=== PATIENT | female | born 1935 | race Caucasian/White ===

== ENCOUNTER 2016-08-25 15:55 | Inpatient (IN) | payer OTHER ==
--- NOTE | 2016-08-25 16:09 | CPEKG ---
Heart Rate: 118 RR Interval: 508 QRSD Interval: 74 QT Interval: 320 QTC Interval: 449 QRS [place]: 1 T Wave [place]: 65 EKG Severity - ABNORMAL ECG - EKG Impression: ATRIAL FIBRILLATION, V-RATE 80-149 EKG Impression: MULTIFORM VENTRICULAR PREMATURE COMPLEXES EKG Impression: BORDERLINE T ABNORMALITIES, LATERAL LEADS Electronically Signed By: Braeden Cano 25-Aug-2016 16:40:27
[2016-08-25 16:24] LABS: % IMMATURE GRANULYOCYTES 0.2 % (0.0-1.1); ABSOLUTE IMMATURE GRANULOCYTES 0.03 10^3/uL (0.00-0.10); ADD DIFF? NO; ADD MORPH? NO; ADD SCAN? NO; ATYPICAL LYMPHOCYTE FLAG 0 (0-99); FRAGMENT RBC FLAG 0 (0-99); HEMATOCRIT 46.6 % (38.0-47.0); HEMOGLOBIN 15.5 g/dL (12.6-16.3); LEFT SHIFT FLG 0 (0-99); LIPEMIA HEMOLYSIS FLAG 80 (0-99); MEAN CELL HEMOGLOBIN CONCENTR. 33.3 g/dL (32.4-36.7); MEAN CELL VOLUME 90.1 fL (81.5-99.8); MEAN PLATELET VOLUME 11.5 fL (8.7-11.7); PLATELET CLUMPS FLAG 50 (0-99); PLATELET COUNT 233 10^3/uL (150-400); RED BLOOD CELL COUNT 5.17 10^6/uL (4.18-5.33); RED CELL DISTRIBUTION WIDTH 14.3 % (11.5-15.2)
[2016-08-25] MEDS ORDERED: ENOXAPARIN 60 MG/0.6 ML SYR SC ONE (16:24)
--- NOTE | 2016-08-25 16:34 | EDPHY ---
H & P Stated Complaint: sent for afib/synptoms for 1 month Time Seen by Provider: 08/25/16 16:08 HPI/ROS: CHIEF COMPLAINT: Dyspnea, new onset atrial fibrillation HISTORY OF PRESENT ILLNESS: The patient presents to the ED with complaints of dyspnea and new onset atrial fibrillation. The patient has had some increasing pedal edema over the past month. 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 She was noted to be in atrial fibrillation with rapid ventricular response. She was referred to the ED for further evaluation. The patient denies asymmetric calf pain or swelling. Patient has had some generalized weakness over the past month. She does have fairly significant dyspnea with ambulation. She has no prior history of atrial fibrillation. She denies additional complaints. REVIEW OF SYSTEMS: A comprehensive 10 point review of systems is otherwise negative aside from elements mentioned in the history of present illness. Source: Patient Exam Limitations: No limitations - Personal History Current Tetanus/Diphtheria Vaccine: Unsure Tetanus Vaccine Date: unsure - Medical/Surgical History Hx Asthma: No Hx Chronic Respiratory Disease: No Hx Diabetes: Yes Hx Cardiac Disease: Yes Hx Renal Disease: No Hx Cirrhosis: No Hx Alcoholism: No Hx HIV/AIDS: No Hx Splenectomy or Spleen Trauma: No Other PMH: Medical- Pre-diabetic, HTN, hyperlipidemia, peripheral neuropathy, ? dysrhythmia, hypothyroid, CVA/TIA. Surgical- stent,thumb surg x3, tonsillectomy , hysterectomy, - Social History Smoking Status: Never smoked - Physical Exam Exam: General Appearance: Alert, no distress Eyes: Pupils equal and round no pallor or injection ENT, Mouth: Mucous membranes moist Respiratory: There are no retractions, lungs are clear to auscultation Cardiovascular: Irregular rate, 2/6 systolic ejection murmur Gastrointestinal: Abdomen is soft and nontender, no masses, bowel sounds normal Neurological: A&O, normal motor function, normal sensory exam, normal cranial nerves Skin: Warm and dry, no rashes Musculoskeletal: Neck is supple nontender Extremities: 2+ bilateral pitting edema Psychiatric: Patient is oriented X 3, there is no agitation Constitutional: Initial Vital Signs Temperature (C) 36.4 C 08/25/16 15:57 Heart Rate 146 H 08/25/16 15:57 Respiratory Rate 20 08/25/16 15:57 Blood Pressure 159/106 H 08/25/16 15:57 O2 Sat (%) 96 08/25/16 15:57 O2 Delivery Mode Nasal Cannula O2 (L/minute) 3 Allergies/Adverse Reactions: Alpha-Linoleic Acid [From [place] 3-6-9] Allergy (Mild, Verified 08/25/16 15:56) Other-Enter Comments Fatty Acid Combination No.8 [From [place] 3-6-9] Allergy (Mild, Verified 08/25/16 15:56) Other-Enter Comments fish oil [From [place] 3-6-9] Allergy (Mild, Verified 08/25/16 15:56) Other-Enter Comments Gamma Linoleic Acid [From [place] 3-6-9] Allergy (Mild, Verified 08/25/16 15:56) Other-Enter Comments Herbal Complex No. 137 [From [place] 3-6-9] Allergy (Mild, Verified 08/25/16 15:56 ) Other-Enter Comments linoleic acid [From [place] 3-6-9] Allergy (Mild, Verified 08/25/16 15:56) Other-Enter Comments lipase [From [place] 3-6-9] Allergy (Mild, Verified 08/25/16 15:56) Other-Enter Comments oleic acid [From [place] 3-6-9] Allergy (Mild, Verified 08/25/16 15:56) Other-Enter Comments omega-3 fatty acids [From [place] 3-6-9] Allergy (Mild, Verified 08/25/16 15:56) Other-Enter Comments paroxetine HCl [From Paxil] Allergy (Mild, Verified 08/25/16 15:56) vitamin E [From [place] 3-6-9] Allergy (Mild, Verified 08/25/16 15:56) Other-Enter Comments nadolol [From [place]orgard] Allergy (Unknown, Verified 08/25/16 15:56) spironolactone [From Aldactone] Allergy (Unknown, Verified 08/25/16 15:56) labetalol [Labetalol] Allergy (Verified 08/25/16 15:56) Other-Enter Comments Sulfa (Sulfonamide Antibiotics) Allergy (Verified 08/25/16 15:56) Rash Home Medications: Medication Instructions Recorded Multivitamins [Multivitamin (*)] 1 each PO DAILY 02/23/11 Aspirin EC [Aspirin EC 325 mg (*)] 325 mg PO BID 01/16/14 Atorvastatin Calcium [Lipitor 10 10 mg PO DAILY 08/25/16 mg (*)] Cholecalciferol Vit D3 [Vitamin D3 1,000 units PO DAILY 08/25/16 (*)] Cyanocobalamin [Vitamin B12 (*)] 500 mcg PO DAILY 08/25/16 Doxycycline Hyclate [Vibramycin 100 mg PO DAILY@18 08/25/16 100 MG (*)] Gabapentin [Neurontin 400 MG (*)] 400 mg PO QID 08/25/16 Herbals/Supplements -Info Only 1 ea PO DAILY 08/25/16 Levothyroxine [Synthroid 50 mcg 50 mcg PO DAILY06 08/25/16 (*)] Lisinopril [Zestril 40 mg (*)] 40 mg PO DAILY 08/25/16 Metformin HCl [Glucophage 1000 mg] 1,000 mg PO BIDMEAL 08/25/16 Metformin HCl [Glucophage] 500 mg PO DAILY@12 08/25/16 Nebivolol HCl [Bystolic] 10 mg PO HS 08/25/16 Medical Decision Making - Diagnostics EKG Interpretation: EKG: Complete interpretation has been separately recorded in the [employer] archive. Summary impression: Atrial fibrillation with ventricular rate of 120 Imaging: Chest x-ray PA lateral: Images reviewed by myself and radiologist Dr. Drew schwab suggest evidence of mild congestive heart failure. ED Course/Re-evaluation: The patient was referred to the emergency department by Dr. Nikita Kim who has requested the patient be admitted to hospitalist service. She presents to the ED with new onset atrial fibrillation, pedal edema and dyspnea. The patient was initially quite tachycardic however has had some improvement of her tachycardia into the low 100. She is currently not on diltiazem. The patient was observed in the ED. She does have evidence of mild congestive heart failure based upon BNP testing but no significant hypoxemia. The patient will be admitted to the hospital for further evaluation. The patient was given a weight based dose of Lovenox per Dr. Kim is recommendation. Consultation was made with Dr. Eun Izaguirre from the hospitalist service who will admit the patient. Differential Diagnosis: Differential diagnosis considered includes atrial fibrillation, ventricular tachycardia, congestive heart failure myocardial infarction - Data Points Laboratory Results: Laboratory Results 08/25/16 16:15 08/25/16 16:15 08/25/16 16:15 WBC 14.18 H 10^3/uL (3.80-9.50) RBC 5.17 10^6/uL (4.18-5.33) Hgb 15.5 g/dL (12.6-16.3) Hct 46.6 % (38.0-47.0) MCV 90.1 fL (81.5-99.8) MCH 30.0 pg (27.9-34.1) MCHC 33.3 g/dL (32.4-36.7) RDW 14.3 % (11.5-15.2) Plt Count 233 10^3/uL (150-400) MPV 11.5 fL (8.7-11.7) Neut % (Auto) 37.2 L % (39.3-74.2) Lymph % (Auto) 54.8 H % (15.0-45.0) [place] % (Auto) 4.8 % (4.5-13.0) Eos % (Auto) 2.5 % (0.6-7.6) Baso % (Auto) 0.5 % (0.3-1.7) Nucleat RBC Rel Count 0.0 % (0.0-0.2) Absolute Neuts (auto) 5.28 10^3/uL (1.70-6.50) Absolute Lymphs (auto) 7.77 H 10^3/uL (1.00-3.00) Absolute Monos (auto) 0.68 10^3/uL (0.30-0.80) Absolute Eos (auto) 0.35 10^3/uL (0.03-0.40) Absolute Basos (auto) 0.07 10^3/uL (0.02-0.10) Absolute Nucleated RBC 0.00 10^3/uL (0-0.01) Immature Gran % 0.2 % (0.0-1.1) Immature Gran # 0.03 10^3/uL (0.00-0.10) Sodium 139 mEq/L (134-144) Potassium 2.9 L mEq/L (3.5-5.2) Chloride 111 H mEq/L (97-110) Carbon Dioxide 22 mEq/l (22-31) Anion Gap 6 mEq/L (8-16) BUN 12 mg/dL (7-23) Creatinine 0.6 mg/dL (0.6-1.0) Estimated GFR > 60 Glucose 142 H mg/dL (70-100) Calcium 6.9 L mg/dL (8.5-10.4) Troponin I < 0.012 ng/mL (0-0.034) NT-Pro-B Natriuret Pep 2640 H pg/mL (0-450) Medications Given: Discontinued Medications Enoxaparin Sodium (Lovenox) 60 mg SC EDNOW ONE Stop: 08/25/16 16:25 Last Admin: 08/25/16 16:52 Dose: 60 mg Departure - Departure Disposition: [facility] Acute Clinical Impression: Rapid atrial fibrillation, Peripheral edema Congestive heart failure Qualifiers: Congestive heart failure type: unspecified congestive heart failure type Congestive heart failure chronicity: acute Qualifier Code: (I50.9) Heart failure , unspecified Condition: Good
[2016-08-25 16:44] LABS: ANION GAP 6 mEq/L (8-16); CALCIUM 6.9 mg/dL (8.5-10.4); CARBON DIOXIDE 22 mEq/l (22-31); CHLORIDE 111 mEq/L (97-110); CREATININE 0.6 mg/dL (0.6-1.0); GLOMERULAR FILTRATION RATE > 60; GLUCOSE 142 mg/dL (70-100); POTASSIUM 2.9 mEq/L (3.5-5.2); SODIUM 139 mEq/L (134-144)
[2016-08-25 16:55] LABS: TROPONIN I < 0.012 ng/mL (0-0.034)
--- NOTE | 2016-08-25 17:36 | DX ---
PA and Lateral Chest Indication: Chest pain. Dyspnea. New onset atrial fibrillation. Comparison: None Findings: The mildly hyperinflated lungs have diffuse mild peribronchial and interstitial pattern. Sm all bilateral pleural effusions blunt costophrenic angles and results in minimal bibasilar compressiv e atelectasis. Heart size minimally enlarged. Minimal cephalization. Demineralization. Impression: Minimal CHF and bilateral pleural effusions. Comment: The results were discussed with Dr. Braeden Cano.
[2016-08-25] MEDS ORDERED: PROTOCOL POTASSIUM 1 DOSE MISC PRN (19:58)
[2016-08-25] MEDS ORDERED: POTASSIUM CL 10 MEQ TAB PO ONE (20:22)
[2016-08-25] MEDS ORDERED: D50W 25 GM/50 ML SYR IVP PRN (20:23)
[2016-08-25] MEDS ORDERED: DILTIAZEM 125 MG in D5W 125 ML IV SCH (20:30)
--- NOTE | 2016-08-25 21:02 | US ---
Bilateral Lower Extremity Ultrasound and Venous Duplex Doppler Study History: Swelling. Comparison: None available. Technique: High frequency transducer was used for imaging and Doppler study of the veins of the righ t and left lower extremities. Pulsed Doppler and color Doppler were utilized, along with various ma neuvers to assess flow in the veins. Findings: Calf edema is noted bilaterally. Right: The deep veins of the right lower extremity are normally compressible between the groin and th e upper calf. They have normal Doppler waveforms within them. No venous thrombosis is identified. Left: The deep veins of the left lower extremity are normally compressible between the groin and the upper calf. They have normal Doppler waveforms within them. No venous thrombus is identified. Impression: No evidence of deep vein thrombosis in the lower extremities.
--- NOTE | 2016-08-25 21:04 | GHP ---
[f rep st] HISTORY AND PHYSICAL DATE OF ADMISSION: 08/25/2016 CHIEF COMPLAINT: Edema and palpitations. HISTORY: The patient is an 81-year-old female who was seen in the cardiology office today for routin e followup, and she was found to be in new-onset AFib. She has been struggling with leg edema recent ly, as well as shortness of breath with only minimal exertion. Her Bystolic was increased in r, and it was shortly after this that she developed the worsening edema and shortness of breath, so s he thought the Bystolic was the cause. The Bystolic has since been reduced back to her previous dose , and she continues to have shortness of breath and edema. She occasionally will feel palpitations. Her leg edema goes all the way up to her thighs. She has had a 10-pound weight gain. She denies an y chest pain. PAST MEDICAL HISTORY: 1. Coronary artery disease, status post stent. 2. Diabetes type 2. 3. TIA. 4. Hyperlipidemia. 5. CLL. MEDICATIONS: Please see the computer record for the full detailed list. ALLERGIES: To sulfa, nadolol, labetalol, and spironolactone. SOCIAL HISTORY: No smoking. No alcohol. She lives with her daughter. REVIEW OF SYSTEMS: A complete review of systems was obtained. The review of systems is negative on constitutional, HEENT, GI, pulmonary, cardiovascular, , hematology, skin, musculoskeletal, endocrin e, and psych except for the positives and negatives as noted in the HPI. FAMILY HISTORY: Reviewed and noncontributory to presenting complaint. PHYSICAL EXAMINATION: GENERAL: Well-developed, well-nourished female in no acute distress. VITAL S IGNS: Temperature 36.4, pulse 112, blood pressure 191/122, satting 96% on room air. EYE EXAMINATION : Normal conjunctivae. Pupils equal and reactive to light. ENT: Normal ears and nose. Hearing in tact. Normal lips and teeth. Oropharynx moist. NECK: Trachea midline. No thyromegaly. CHEST: N ormal respiratory effort. LUNGS: Clear to auscultation bilaterally. CARDIOVASCULAR SYSTEM: Irregu larly irregular, with murmur. 3+ lower extremity edema. ABDOMEN: Soft, nontender. No hepatospleno megaly. SKIN: Warm, dry, and intact, without rash. MUSCULOSKELETAL: No cyanosis or clubbing. Str ength 5/5 in the upper and lower extremities. NEUROLOGIC: Cranial nerves intact. Normal sensation to light touch. PSYCH ASSESSMENT: Alert and oriented x3. Normal mood and affect. Normal judgment and insight. Normal memory. LABORATORY DATA: White count 14.18, hematocrit 46.6, platelets 233. Sodium 139, potassium 2.9, chlo ride 111, bicarb 22, BUN 12, creatinine 0.6, glucose 142. Troponins negative. BNP is 2640. EKG was viewed by me. My personal interpretation is atrial fibrillation with rapid ventricular response. N o ST or T-wave changes. Chest x-ray shows mild CHF. ASSESSMENT AND PLAN: 1. New-onset atrial fibrillation with rapid ventricular response. She is quite hypertensive this ev ening. We will start her on an IV diltiazem drip. We will anticoagulate with subcu Lovenox. We kena l check an echo in the morning. Cardiology is aware of the admission. 2. Congestive heart failure exacerbation. We will initiate IV Lasix. 3. Hypokalemia. It is unclear to me why she is so hypokalemic, as she is not on a diuretic at home. The potassium will be repleted prior to initiating diuresis. 4. Coronary artery disease, status post previous stent. She is appropriately on an aspirin, statin, beta helena, and GISELE inhibitor. 5. Diabetes type 2. She is on metformin. 6. CLL. She has a stable mild leukocytosis and has not required any treatment for CLL. 7. DVT prophylaxis. She will be fully anticoagulated on subcu Lovenox as discussed above. CODE STATUS: Full. ADMISSION STATUS: We will admit to inpatient as I anticipate greater than 2 midnights will be requir ed for stabilization. /[id number]/MODL
[2016-08-25] MEDS: NEBIVOLOL HCL 5 MG TAB PO SCH (21:17)
[2016-08-25] MEDS: ASPIRIN EC 325 MG TAB PO SCH (21:17)
[2016-08-25] MEDS: GABAPENTIN 400 MG CAP PO SCH (21:19)
[2016-08-25] MEDS: metFORMIN HCL 500 MG TAB PO SCH (21:57)
[2016-08-26] MEDS: INSULIN REGULAR HUMAN 100 UNIT/ML SC SCH ×5 (00:17→21:24)
[2016-08-26 05:36] LABS: % IMMATURE GRANULYOCYTES 0.3 % (0.0-1.1); ABSOLUTE IMMATURE GRANULOCYTES 0.03 10^3/uL (0.00-0.10); ADD DIFF? NO; ADD MORPH? NO; ADD SCAN? NO; ATYPICAL LYMPHOCYTE FLAG 10 (0-99); FRAGMENT RBC FLAG 0 (0-99); HEMATOCRIT 41.5 % (38.0-47.0); HEMOGLOBIN 13.8 g/dL (12.6-16.3); LEFT SHIFT FLG 0 (0-99); LIPEMIA HEMOLYSIS FLAG 80 (0-99); MEAN CELL HEMOGLOBIN 29.7 pg (27.9-34.1); MEAN CELL HEMOGLOBIN CONCENTR. 33.3 g/dL (32.4-36.7); MEAN CELL VOLUME 89.4 fL (81.5-99.8); MEAN PLATELET VOLUME 11.6 fL (8.7-11.7); PLATELET CLUMPS FLAG 10 (0-99); PLATELET COUNT 199 10^3/uL (150-400); RED BLOOD CELL COUNT 4.64 10^6/uL (4.18-5.33); RED CELL DISTRIBUTION WIDTH 14.2 % (11.5-15.2)
[2016-08-26] MEDS: GABAPENTIN 400 MG CAP PO SCH ×4 (05:50→21:23)
[2016-08-26] MEDS ORDERED: LEVOTHYROXINE 50 MCG TAB PO SCH (06:00)
[2016-08-26 06:32] LABS: ANION GAP 11 mEq/L (8-16); CALCIUM 8.8 mg/dL (8.5-10.4); CARBON DIOXIDE 21 mEq/l (22-31); CHLORIDE 106 mEq/L (97-110); CHOLESTEROL 75 mg/dL (140-220); CHOLESTEROL/HDL RATIO 2.78 RATIO (1.00-4.44); CREATININE 0.7 mg/dL (0.6-1.0); GLOMERULAR FILTRATION RATE > 60; GLUCOSE 148 mg/dL (70-100); HIGH DENSITY LIPOPROTEIN 27 mg/dL (40-85); LDL/HDL RATIO 1.11 RATIO (1.00-3.22); LOW DENSITY LIPOPROTEIN 30 mg/dL (80-100); MAGNESIUM 1.6 mg/dL (1.6-2.3); NON-HIGH DENSITY LIPOPROTEIN 48 mg/dL (90-129); POTASSIUM 4.4 mEq/L (3.5-5.2); SODIUM 138 mEq/L (134-144); TRIGLYCERIDE 94 mg/dL (35-135); VERY LOW DENSITY LIPOPROTEINS 18 mg/dL (8-25)
[2016-08-26] MEDS ORDERED: MIDAZOLAM 2 MG/2 ML VIAL IVP ONE (08:00)
[2016-08-26] MEDS ORDERED: ENOXAPARIN 60 MG/0.6 ML SYR SC SCH (09:00)
[2016-08-26] MEDS: ASPIRIN EC 325 MG TAB PO SCH ×2 (09:01→21:23)
[2016-08-26] MEDS: FUROSEMIDE 40 MG/4 ML VIAL IVP SCH ×2 (09:01→15:48)
[2016-08-26] MEDS: CYANO/VITAMIN B12 1000 MCG TAB PO SCH (09:01)
[2016-08-26] MEDS: ATORVASTATIN CALCIUM 10 MG TAB PO SCH (09:02)
[2016-08-26] MEDS: metFORMIN HCL 500 MG TAB PO SCH ×2 (09:02→17:56)
[2016-08-26] MEDS: LISINOPRIL 40 MG TAB PO SCH (09:02)
--- NOTE | 2016-08-26 10:47 | HOSPPROG ---
Hospitalist Progress Note Assessment/Plan: # Atrial fibrillation with rapid ventricular response- presenting with shortness of breath and palpitation- AFib new diagnosis telemetry( personally reviewed and interpreted) atrial fibrillation with rates in the 120's - continue diltiazem drip - transthoracic echocardiogram ordered - continue Lovenox anticoagulation - will discuss cardioversion with Cardiology # acute suspected- diastolic heart failure- patient's shortness of breath improved with Lasix overnight oxygen saturations 95% on 2 L - TTE ordered - continue IV Lasix # history of coronary artery disease- denies active chest pain - continue aspirin, statin, lisinopril and Bystolic # hypothyroidism- and TSH on admission greater than 15- recent initiation of Synthroid replacement - increased dose from 50 mcg to 75 mcg # diabetes- blood sugars 142-187 - continue home metformin - sliding scale insulin as needed # CLL- cell count stable # prophylaxis Lovenox # diet cardiac # disposition greater than 2 midnights as requiring medication titration for AFib with RVR and likely cardiac intervention I have discussed the case with Cardiology we will plan on echo today and potentially cardioversion based on her response to treatment Subjective: shortness of breath improved Objective: Vital Signs Temp Pulse Resp BP Pulse Ox 36.6 C 95 20 154/110 H 97 08/26/16 07:57 08/26/16 07:57 08/26/16 07:57 08/26/16 07:57 08/26/16 07:57 Laboratory Results 08/26/16 05:14 08/26/16 05:14 08/25/16 08/26/16 08/27/16 05:59 05:59 05:59 Intake Total 400 Output Total 400 Balance 0 - Physical Exam Constitutional: appears nourished Eyes: anicteric sclera Ears, Nose, Mouth, Throat: moist mucous membranes Cardiovascular: irregularly irregular, tachycardia Respiratory: no respiratory distress Gastrointestinal: normoactive bowel sounds, soft, non-tender abdomen Genitourinary: no bladder fullness Skin: warm, normal color Musculoskeletal: No asymmetric calves Neurologic: AAOx3 Psychiatric: interacting appropriately, not anxious Lymph, Heme, Immunologic: no cervical LAD ICD10 Worksheet Patient Problems: Problems Problem Status Diagnosed Congestive heart failure Acute Peripheral edema Acute Rapid atrial fibrillation Acute
--- NOTE | 2016-08-26 11:36 | PDCARPN ---
Cardiology Progress Note Chief Complaint: SOB and edema Assessment/Plan: Assessment: The patient is a 81 y/o F with a history of CAD s/p stenting, HTN, HLP, and DM who presented to our office on 08/25 with progressive RAMIREZ and lower extremity edema. She was found to have in new onset atrial fibrillation. She was seen by Dr. Kim in May with minor lower extremity edema which was thought to be related to Norvasc. It was d/c and Bystolic was increased to 20mg. She felt poorly with the increased dose and therefore decreased her dose back to 10mg. Since the beginning of Jul she noticed progressive lower extremity edema and RAMIREZ with a 10 pound weight gain. She also admits to feeling her heart race since May. She had a echo on Jun 27 which showed preserved LV function with valvular disease and moderate PHTN. Her rates were well controlled while in the office but she has been tachycardic while in the hospital. She was started on Lasix IV and has diuresed significantly. Repeat echo showed preserved LV function with DD. Plan: 1. Acute CHF secondary to diastolic CHF and tachycardia. Continue Lasix IV. Can likely transition to PO tomorrow morning. Edema and RAMIREZ has improved. 2. new onset atrial fibrillation with RVR- rates are currently 100-130BPM. Will add PO dilt 120mg daily. Plan for POLY/CV tomorrow morning. Her CHADS VASc score is 6. Begin Eliquis 2.5mg BID. She is on a reduced dose secondary to her age and weight (dry weight is less than 60KG) 3. HTN- BP 155/90. Continue Bystolic and Lisinopril. Will add dilt. 4. Hypokalemia- K replaced 5. Hypothyroidism- treatment per hospitalist. 6. Valvular heard disease- 7. PHTN 8. CAD- continue statin, Asp, and BB 08/26/16 11:45 Subjective: Complaining of edema and RAMIREZ which is improving. She denies any CP. Reviewed/Discussed With: hospitalist Objective: Vital Signs (8 Hrs) Temp Pulse Resp BP Pulse Ox 08/26/16 07:57 36.6 C 95 20 154/110 H 97 08/26/16 04:00 36.7 C 84 17 166/114 H 93 Intake/Output (24 Hrs) 02/09/0908/26/16 08/27/16 05:59 05:59 05:59 Intake Total 400 Output Total 400 Balance 0 Intake: Oral (ml) 400 IV Intake (ml) 0 Output: Urine (ml) 400 Toilet 400 Other: Weight 60.9 kg Result Diagrams: 08/26/16 05:14 08/26/16 05:14 Telemetry: a.fib with rates of 100-130 BPM. - Physical Exam Constitutional: WDWN Cardiovascular: irregularly irregular, other (mild bilateral lower extremity edema, improved R>L) Respiratory: inspiratory crackles Neurologic: AAOx3 ICD10 Worksheet Patient Problems: Problems Problem Status Diagnosed Congestive heart failure Acute Peripheral edema Acute Rapid atrial fibrillation Acute
--- NOTE | 2016-08-26 11:56 | ECHO ---
[id number] + + [id number] : : [place] [id number] : : [phone] + + Adult Echocardiographic Report + ------+ :Name: ERWIN BECK SStudy Date: 08/26/2016 08:11 AM : : Hospital Admission Number: [id number] Locatio n: 220: :: 1935 Gender: Female Height: 63 in : :Age: 81 yrs Race: WH Weight: 134 lb : :Reason For Study: CHF : : BSA: 1.6 meters 2 : :History: Bradycardia : + ------+ MMode/2D Measurements & Calculations IVSd: 0.98 cm RVDd: 2.6 cm FS: 32.2 % MV Diam: 2.3 cm LVPWd: 0.94 cm LVIDd: 3.4 cm EDV(Teich): 47.5 ml LVIDs: 2.3 cm ESV(Teich): 18.2 ml EF(Teich): 61.6 % LVOT diam: 1.7 cm LVLd ap4: 6.5 cm SV(MOD-sp4): 20.0 ml LVOT area: 2.2 cm2 EDV(MOD-sp4): 41.0 ml LVLs ap4: 5.8 cm ESV(MOD-sp4): 21.0 ml EF(MOD-sp4): 48.8 % Normal Measurement Values: + + :LVIDd (3.5-5.7cm) IVSd (0.6-1.1cm) LVPWd (0.6-1.1cm) Aortic Root (2.0-3.7cm)Left Atrium (1.5-4.0cm): :LV Vol(d) (76-115ml) LV Vol(s) (29-48ml) Ejec Fraction (50-65%)PV Anthony (0.6- 1.2m/s) TV Anthony (0.4-1.0m/s) : :MV E Anthony (0.8-1.0m/s)MV A Anthony (0.3-1.0m/s)LVOT Anthony (0.7-1.2m/s) Asc Ao Anthony ( 0.9-1.8m/s) : + + Doppler Measurements & Calculations MV E max anthony: MV V2 max: Ao V2 max: AI max anthony: 97.6 cm/sec 96.4 cm/sec 84.2 cm/sec 293.2 cm/sec MV dec time: MV max P.7 mmHg Ao max PG: AI max P.4 mmHg 0.13 sec MV V2 mean: 2.8 mmHg AI dec slope: 65.1 cm/sec Ao mean P.9 cm/sec2 MV mean P.9 mmHg1.5 mmHg AI P1/2t: 336.9 msec MV V2 VTI: 19.0 cm Ao V2 mean: MV area (1 diam): 55.7 cm/sec 4.1 cm2 Ao V2 VTI: 14.5 cm ANGELICA(I,D): 1.9 cm2 MVA(VTI): 1.4 cm2 MV Flow area(1diam):ANGELICA(V,D): 1.7 cm2 4.1 cm2 LV V1 max: MR max anthony: MR(RF 1 diam): SV(MV 1 diam): 64.8 cm/sec 552.4 cm/sec 12.6 % 78.4 ml LV V1 max PG: MR max PG: SI(MV 1 diam): 1.7 mmHg 122.6 mmHg 48.1 ml/m2 LV V1 mean PG: SV(LVOT): 26.9 ml 0.94 mmHg LV V1 mean: 45.5 cm/sec LV V1 VTI: 12.2 cm PA V2 max: PI end-d anthony: TR max anthony: RF(MV,LVOT)(1diam): 63.4 cm/sec 114.7 cm/sec 264.7 cm/sec 0.66 PA max PG: TR max P.6 mmHg 28.0 mmHg RAP systole: 15.0 mmHg RVSP(TR): 43.0 mmHg Left Ventricle The left ventricle is normal in size and function. There is normal left ventricular wall thickness. Ejection Fraction = 55-60%. Diastolic Function Indeterminate due to due to Afib.. No regional wall motion abnormalities noted. Right Ventricle The right ventricle is normal size. The right ventricular systolic function is borderline reduced. Atria The left atrium is mildly dilated. Right atrial size is normal. The interatrial septum is intact with no evidence for an atrial septal defect. Mitral Valve The anterior mitral valve leaflet appear thickened. There is no mitral valve stenosis. There is mild to moderate mitral regurgitation. Tricuspid Valve The tricuspid valve is normal in structure and function. There is no tricuspid stenosis. There is moderate tricuspid regurgitation. Right ventricular systolic pressure is 43mmHg. There is Doppler evidence for mild pulmonary hypertension. Aortic Valve The aortic valve is not well visualized. There is mild aortic valve calcification. There is no aortic stenosis. Mild aortic regurgitation. Pulmonic Valve The pulmonic valve is normal in structure and function. There is no pulmonic valvular stenosis. Trace pulmonic valvular regurgitation. Great Vessels The aortic root is normal size. Pericardium/Pleural There is a fat pad seen. trivial pericardial effusion. Conclusion A complete two-dimensional transthoracic echocardiogram was performed (2D, M-mode, Doppler and color flow Doppler). The left ventricle is normal in size and function. Ejection Fraction = 55-60%. Diastolic Function Indeterminate due to due to Afib.. The right ventricle is normal size. The right ventricular systolic function is borderline reduced. The left atrium is mildly dilated. There is mild aortic valve calcification. Mild aortic regurgitation. The anterior mitral valve leaflet appears thickened. There is mild to moderate mitral regurgitation. Trace pulmonic valvular regurgitation. There is moderate tricuspid regurgitation. There is Doppler evidence for mild pulmonary hypertension. Right ventricular systolic pressure is 43mmHg. Trivial pericardial effusion. Final Reading Physician: Yahir Chapman signed on 08/26/2016 11:55 AM Ordering Physician: Eun Izaguirre Performed By: Sara Momin
[2016-08-26] MEDS ORDERED: metFORMIN HCL 500 MG TAB PO SCH (12:00)
[2016-08-26] MEDS: DILTIAZEM CD 120 MG CAP PO SCH (12:45)
[2016-08-26 16:46] LABS: POTASSIUM 4.2 mEq/L (3.5-5.2)
[2016-08-26] MEDS ORDERED: DOXYCYCLINE HYCLATE 100 MG CAP/TAB PO SCH (18:00)
[2016-08-26] MEDS: APIXABAN 2.5 MG TAB PO SCH (21:23)
[2016-08-26] MEDS: NEBIVOLOL HCL 5 MG TAB PO SCH (21:23)
[2016-08-27] MEDS: GABAPENTIN 400 MG CAP PO SCH (04:54)
[2016-08-27 05:46] LABS: HEMATOCRIT 44.9 % (38.0-47.0); HEMOGLOBIN 15.2 g/dL (12.6-16.3); MEAN CELL HEMOGLOBIN 29.9 pg (27.9-34.1); MEAN CELL HEMOGLOBIN CONCENTR. 33.9 g/dL (32.4-36.7); MEAN CELL VOLUME 88.2 fL (81.5-99.8); RED BLOOD CELL COUNT 5.09 10^6/uL (4.18-5.33); RED CELL DISTRIBUTION WIDTH 14.3 % (11.5-15.2)
[2016-08-27 05:58] LABS: INR 1.18 (0.83-1.16)
[2016-08-27 05:59] LABS: APTT 28.8 SEC (23.0-38.0)
[2016-08-27 06:00] LABS: ANION GAP 12 mEq/L (8-16); CALCIUM 8.9 mg/dL (8.5-10.4); CARBON DIOXIDE 29 mEq/l (22-31); CHLORIDE 101 mEq/L (97-110); CREATININE 0.9 mg/dL (0.6-1.0); GLOMERULAR FILTRATION RATE > 60; GLUCOSE 92 mg/dL (70-100); POTASSIUM 3.9 mEq/L (3.5-5.2); SODIUM 142 mEq/L (134-144)
[2016-08-27] MEDS ORDERED: LEVOTHYROXINE 75 MCG TAB PO SCH (06:00)
[2016-08-27] MEDS ORDERED: NS 1,000 ML IV SCH (06:00)
[2016-08-27 07:40] VITALS: RESP 20; TEMP 97.7; O2SAT 96
[2016-08-27] MEDS ORDERED: MIDAZOLAM 2 MG/2 ML VIAL IVP ONE (08:00)
--- NOTE | 2016-08-27 08:16 | CPEKG ---
Heart Rate: 75 RR Interval: 800 QRSD Interval: 78 QT Interval: 428 QTC Interval: 479 QRS [place]: 19 T Wave [place]: -16 EKG Severity - ABNORMAL ECG - EKG Impression: ATRIAL FIBRILLATION, V-RATE 62-83 EKG Impression: NONSPECIFIC T ABNORMALITIES, LATERAL LEADS Electronically Signed By: Katt Dumont 28-Aug-2016 16:46:32
[2016-08-27] MEDS ORDERED: FUROSEMIDE 40 MG TAB PO SCH (09:00)
[2016-08-27] MEDS: INSULIN REGULAR HUMAN 100 UNIT/ML SC SCH (09:01)
[2016-08-27] MEDS: metFORMIN HCL 500 MG TAB PO SCH (09:49)
[2016-08-27] MEDS: CYANO/VITAMIN B12 1000 MCG TAB PO SCH (09:49)
[2016-08-27] MEDS: ASPIRIN EC 325 MG TAB PO SCH (09:49)
[2016-08-27] MEDS: APIXABAN 2.5 MG TAB PO SCH (09:49)
[2016-08-27] MEDS: LISINOPRIL 40 MG TAB PO SCH (09:49)
[2016-08-27] MEDS: DILTIAZEM CD 120 MG CAP PO SCH (09:50)
[2016-08-27] MEDS: ATORVASTATIN CALCIUM 10 MG TAB PO SCH (09:50)
[2016-08-27 09:53] VITALS: BP 146/105; PULSE 80
--- NOTE | 2016-08-27 10:02 | PDCARPN ---
Cardiology Progress Note Chief Complaint: No complaints today. Overnight, the patient slept very well. Assessment/Plan: Assessment: Patient is an 81 y/o female with history of CAD s/p PCI, DM, HTN, HLP, and new atrial fibrillation. Patient was seen in the outpatient office on 08/25/16 with complaints of new dyspnea on exertion. ECG in the office with new atrial fibrillation noted. Patient was seen in the outpatient setting by my partner, Dr. Barbara Kim with lower extremity swelling noted - thought to be secondary to CCB therapy. Changes to medications (cessation of CCB and uptitration of Bystolic) were not tolerated, so Bystolic dose was reduced. Symptoms of "heart racing" were noted in July - all of this building an argument that the patient may have been in atrial fibrillation for some time (months). Patient was started on Eliquis about two days ago ([id number] score is 6), and inpatient diuresis was begun. Echocardiogram with normal LVEF. Plans had been to have POLY with possible cardioversion today, but given only two days of anticoagulation, patient feeling much better today, heart rate control, and CVA prophylaxis with Eliquis on board, we have opted to continue currently medical therapy, and have patient seen in the outpatient setting for discussion about POLY/cardioversion. Patient and daughter were in agreement with these plans. Plan: (1) Would maintain therapy on Bystolic and Lisinopril for history of HTN as well as some degree of rate control assistance (from Bystolic) (2) Continue therapy on Eliquis for CVA prophylaxis (3) ASA should continue for history of CAD/PCI (4) Statins should continue for history of HLP, and maintain annual assessment of cholesterol and LFTs (5) Given the short duration of NOAC therapy, and likely "weeks" of atrial fibrillation, would refrain from POLY today and consider this assessment in 1-2 weeks Patient and daughter were in agreement with these plans. Subjective: No voiced cardiovascular complaints Reviewed/Discussed With: family, hospitalist Time Spent With Patient: 25 minutes Objective: Vital Signs (8 Hrs) Temp Pulse Resp BP Pulse Ox 08/27/16 07:40 36.5 C 85 20 120/81 H 96 08/27/16 03:42 36.4 C 61 18 139/77 H 93 Intake/Output (24 Hrs) 0208/27/16 08/28/16 05:59 05:59 05:59 Intake Total 400 500 Output Total 400 5550 Balance 0 -5050 Intake: Oral (ml) 400 500 IV Intake (ml) 0 Output: Urine (ml) 400 5550 Toilet 400 5550 Other: Weight 57.2 kg Intake Quantity npo Sufficient Number of Voids Toilet 2 Result Diagrams: 08/27/16 05:20 08/27/16 05:20 Telemetry: atrial fibrillation with controlled ventricular response - Physical Exam Constitutional: WDWN, healthy appearing Eyes: PERRL Ears, Nose, Mouth, Throat: moist mucous membranes Cardiovascular: irregularly irregular Peripheral Pulses: 2+: dorsalis-pedis (R), dorsalis-pedis (L) Respiratory: clear to auscultate bilat, no crackles, no wheezes Gastrointestinal: normoactive bowel sounds Skin: no rashes, no edema Musculoskeletal: no muscular tenderness Neurologic: AAOx3, CN II-XII grossly intact Psychiatric: cooperative, interactive, following commands ICD10 Worksheet Patient Problems: Problems Problem Status Diagnosed Congestive heart failure Acute Peripheral edema Acute Rapid atrial fibrillation Acute
[2016-08-27] MEDS ORDERED: POTASSIUM CL 10 MEQ TAB PO ONE (10:13)
--- NOTE | 2016-08-27 22:26 | GDS ---
[f rep st] DISCHARGE SUMMARY DISCHARGE DIAGNOSES: 1. Atrial fibrillation with rapid ventricular response. 2. Acute diastolic heart failure. 3. History of coronary artery disease. 4. Hypothyroidism. 5. Diabetes. 6. Chronic lymphocytic leukemia. HISTORY OF PRESENT ILLNESS: This is an 81-year-old female who presents on 08/25/2016 with complaints of edema and palpitations. For details the patient's initial presentation, please see the history a nd physical dated 08/25/2016. CONSULTATIVE SERVICES: Include Cardiology. PROCEDURES: On 08/25/2016, patient had a transthoracic echocardiogram that showed a normal-sized LV with ejection fraction of 55-60%, diastolic function was indeterminate due to her atrial fibrillation , no segmental wall motion abnormalities were identified. HOSPITAL COURSE BY ISSUE: 1. Atrial fibrillation with rapid ventricular response. The patient was admitted, placed on telemet ry. Initially had a diltiazem drip and then transitioned to oral diltiazem. She was initiated on an ticoagulation with Eliquis. The patient is being discharged to continue anticoagulation and rate con trol medications until seen in the outpatient clinic and can discuss cardioversion. Heart rates on t he day of disposition are ranging between 60 and 80. 2. Diastolic heart failure. The patient was aggressively diuresed in the hospital and transitioned to oral Lasix 20 mg daily with concurrent potassium chloride 10 mEq. She is euvolemic on my examinat ion today and will follow in the outpatient Cardiology Clinic. 3. Diabetes. Patient was continued on her metformin. 4. Hypertension. Patient was continued on her Zestril and Bystolic. Blood pressures with the addit ion of diltiazem were in the 120s to 130s on the day disposition. 5. Hypothyroidism. The patient had her Synthroid therapy continued. MEDICATIONS AT TIME OF DISPOSITION: Please reference medication reconciliation printed on 08/27/2016 . FOLLOWUP: Followup appointments for this patient include in the next 4 days with [facility]. The y have requested she call on Monday and should be seen by middle of the week. PENDING STUDIES AT TIME OF DICTATION: None. TIME SPENT: I spent greater than 30 minutes in the planning and coordination of this discharge. /[id number]/MODL
== END 2016-08-27 12:11 | disposition home or self-care (01) | DRG 308 ==
LOC: F2W 17:57 → OBSVTOIN 20:21
PROVIDERS: ADMIT Internal Medicine; ATTEND Hospitalist
DX: I48.91 Unspecified atrial fibrillation (principal); I50.31 Acute diastolic (congestive) heart failure; C91.90 Lymphoid leukemia, unspecified not having achieved remission; I38 Endocarditis, valve unspecified; I11.0 Hypertensive heart disease with heart failure; E78.5 Hyperlipidemia, unspecified; I27.2 Other secondary pulmonary hypertension; G62.9 Polyneuropathy, unspecified; E11.9 Type 2 diabetes mellitus without complications; E03.9 Hypothyroidism, unspecified; E87.6 Hypokalemia; I25.10 Atherosclerotic heart disease of native coronary artery without angina pectoris; Z86.73 Personal history of transient ischemic attack (TIA), and cerebral infarction without residual deficits; Z95.5 Presence of coronary angioplasty implant and graft
CPT/HCPCS: 97161-GP; G8978-GP-CI; G8979-GP-CI; J1650; J1815

== ENCOUNTER → 2016-09-01 | Outpatient (CLI) | payer OTHER | LOC: BHFA 12:45 | PROVIDERS: ATTEND Internal Medicine Cardiovascular Disease | DX: I25.10 Atherosclerotic heart disease of native coronary artery without angina pectoris (principal); I10 Essential (primary) hypertension; I48.91 Unspecified atrial fibrillation; E78.5 Hyperlipidemia, unspecified; E11.40 Type 2 diabetes mellitus with diabetic neuropathy, unspecified ==

== ENCOUNTER → 2016-10-05 | Outpatient (CLI) | payer OTHER | LOC: BHCLAF 13:15 | PROVIDERS: ATTEND Internal Medicine Cardiovascular Disease | DX: I25.10 Atherosclerotic heart disease of native coronary artery without angina pectoris (principal); I48.91 Unspecified atrial fibrillation; I35.1 Nonrheumatic aortic (valve) insufficiency | CPT/HCPCS: 93005-PO ==

== ENCOUNTER 2016-10-18 22:31 | Inpatient (IN) | payer OTHER ==
--- NOTE | 2016-10-18 22:41 | CPEKG ---
Heart Rate: 112 RR Interval: 536 QRSD Interval: 78 QT Interval: 336 QTC Interval: 459 QRS [place]: 46 T Wave [place]: 119 EKG Severity - ABNORMAL ECG - EKG Impression: ATRIAL FIBRILLATION, V-RATE 80-144 EKG Impression: REPOL ABNRM SUGGESTS ISCHEMIA, ANT-LAT LEADS Electronically Signed By: Marina Rivas 19-Oct-2016 07:25:39
[2016-10-18 22:54] LABS: % IMMATURE GRANULYOCYTES 0.2 % (0.0-1.1); ABSOLUTE IMMATURE GRANULOCYTES 0.03 10^3/uL (0.00-0.10); ABSOLUTE NRBC COUNT 0.02 10^3/uL (0-0.01); ADD DIFF? NO; ADD MORPH? NO; ADD SCAN? YES; FRAGMENT RBC FLAG 0 (0-99); HEMATOCRIT 47.9 % (38.0-47.0); LEFT SHIFT FLG 0 (0-99); LIPEMIA HEMOLYSIS FLAG 80 (0-99); MEAN CELL HEMOGLOBIN 28.8 pg (27.9-34.1); MEAN CELL HEMOGLOBIN CONCENTR. 33.4 g/dL (32.4-36.7); MEAN CELL VOLUME 86.2 fL (81.5-99.8); MEAN PLATELET VOLUME 11.8 fL (8.7-11.7); NRBC-AUTO% 0.1 % (0.0-0.2); PLATELET CLUMPS FLAG 0 (0-99); PLATELET COUNT 211 10^3/uL (150-400); RED BLOOD CELL COUNT 5.56 10^6/uL (4.18-5.33); RED CELL DISTRIBUTION WIDTH 14.9 % (11.5-15.2)
[2016-10-18 22:56] LABS: ATYPICAL LYMPHOCYTE FLAG 100 (0-99)
[2016-10-18 23:03] LABS: ANION GAP 14 mEq/L (8-16); CALCIUM 9.7 mg/dL (8.5-10.4); CARBON DIOXIDE 25 mEq/l (22-31); CHLORIDE 97 mEq/L (97-110); CREATININE 0.7 mg/dL (0.6-1.0); GLOMERULAR FILTRATION RATE > 60; GLUCOSE 197 mg/dL (70-100); POTASSIUM 4.3 mEq/L (3.5-5.2); SODIUM 136 mEq/L (134-144)
--- NOTE | 2016-10-18 23:09 | EDPHY ---
H & P Stated Complaint: CP Time Seen by Provider: 10/18/16 22:47 HPI/ROS: HPI The patient presents with chest pain which began at approximately 7:30 a.m. tonight when she stood from watching television to walk to the kitchen. The pain is described as a tightness in an uncomfortable feeling throughout her entire chest associated with palpitations, and nausea. According to her daughter she a pale pale and clammy. She sat back down and then at about 10 15 it got up to get ready for bed and had the same sensation. Her symptoms are now mostly resolved. She has no prior history of similar. She did not have any associated shortness of breath. She does have a history of diastolic CHF with atrial fibrillation and was admitted in August for this. She has been doing fairly well at home and denies any complaints recently otherwise. She says her heart rates at home have been ranging in the 60s to 80s and her blood pressures have been 130s to 150 systolic. She has taken an aspirin today. REVIEW OF SYSTEMS Constitutional: No fever, no chills. Eyes: No discharge. ENT: No sore throat. Cardiovascular: No chest pain, no palpitations. Respiratory: No cough, no shortness of breath. Gastrointestinal: No abdominal pain, no vomiting. Genitourinary: No hematuria. Musculoskeletal: No back pain. Skin: No rashes. Neurological: No headache. PMHx: Atrial fibrillation, diastolic CHF, CAD with stent placed about 10 years ago Soc Hx: Lives at home PHYSICAL General Appearance: Alert, no distress Eyes: Pupils equal and round no pallor or injection ENT, Mouth: Mucous membranes moist Respiratory: There are no retractions, lungs are clear to auscultation Cardiovascular: Irregularly irregular Gastrointestinal: Abdomen is soft and non-tender, no masses, bowel sounds normal Neurological: A&O, moves all extremities Skin: Warm and dry, no rashes Musculoskeletal: Neck is supple non tender Extremities: symmetrical, full range of motion Psychiatric: Patient is oriented X 3, there is no agitation Source: Patient Exam Limitations: No limitations - Personal History Tetanus Vaccine Date: unsure - Medical/Surgical History Hx Asthma: No Hx Chronic Respiratory Disease: No Hx Diabetes: Yes Hx Cardiac Disease: Yes Hx Renal Disease: No Hx Cirrhosis: No Hx Alcoholism: No Hx HIV/AIDS: No Hx Splenectomy or Spleen Trauma: No Other PMH: dm ON METFORMIN, HTN, hyperlipidemia, peripheral neuropathy, hypothyroid, CVA/TIA, stent, left thumb surg x3, tonsillectomy, hysterectomy, chronic lymphatic leukemia - Social History Smoking Status: Never smoked Constitutional: Initial Vital Signs Temperature (C) 36.3 C 10/18/16 22:39 Heart Rate 109 H 10/18/16 22:39 Respiratory Rate 20 10/18/16 22:39 Blood Pressure 196/131 H 10/18/16 22:39 O2 Sat (%) 96 10/18/16 22:39 O2 Delivery Mode Room Air Allergies/Adverse Reactions: Alpha-Linoleic Acid [From [place] 3-6-9] Allergy (Mild, Verified 08/25/16 15:56) Other-Enter Comments Fatty Acid Combination No.8 [From [place] 3-6-9] Allergy (Mild, Verified 10/18/16 22:56) Other-Enter Comments fish oil [From [place] 3-6-9] Allergy (Mild, Verified 10/18/16 22:56) Other-Enter Comments Gamma Linoleic Acid [From [place] 3-6-9] Allergy (Mild, Verified 10/18/16 22:56) Other-Enter Comments Herbal Complex No. 137 [From [place] 3-6-9] Allergy (Mild, Verified 10/18/16 22:56 ) Other-Enter Comments linoleic acid [From [place] 3-6-9] Allergy (Mild, Verified 10/18/16 22:56) Other-Enter Comments lipase [From [place] 3-6-9] Allergy (Mild, Verified 10/18/16 22:56) Other-Enter Comments oleic acid [From [place] 3-6-9] Allergy (Mild, Verified 10/18/16 22:56) Other-Enter Comments omega-3 fatty acids [From [place] 3-6-9] Allergy (Mild, Verified 10/18/16 22:56) Other-Enter Comments paroxetine HCl [From Paxil] Allergy (Mild, Verified 10/18/16 22:56) vitamin E [From [place] 3-6-9] Allergy (Mild, Verified 10/18/16 22:56) Other-Enter Comments nadolol [From [place]ard] Allergy (Unknown, Verified 08/25/16 15:56) spironolactone [From Aldactone] Allergy (Unknown, Verified 08/25/16 15:56) labetalol [Labetalol] Allergy (Verified 08/25/16 15:56) Other-Enter Comments Sulfa (Sulfonamide Antibiotics) Allergy (Verified 08/25/16 15:56) Rash Home Medications: Medication Instructions Recorded Multivitamins [Multivitamin (*)] 1 each PO DAILY 02/23/11 Atorvastatin Calcium [Lipitor 10 10 mg PO DAILY 08/25/16 mg (*)] Cholecalciferol Vit D3 [Vitamin D3 1,000 units PO DAILY 08/25/16 (*)] Cyanocobalamin [Vitamin B12 (*)] 500 mcg PO DAILY 08/25/16 Doxycycline Hyclate [Vibramycin 100 mg PO DAILY@18 08/25/16 100 MG (*)] Gabapentin [Neurontin 400 MG (*)] 400 mg PO QID 08/25/16 Herbals/Supplements -Info Only 1 ea PO DAILY 08/25/16 Levothyroxine [Synthroid 50 mcg 50 mcg PO DAILY06 08/25/16 (*)] Lisinopril [Zestril 40 mg (*)] 40 mg PO DAILY 08/25/16 Nebivolol HCl [Bystolic] 10 mg PO HS 08/25/16 metFORMIN HCL [Glucophage 1000 mg] 1,000 mg PO BIDMEAL 08/25/16 metFORMIN HCL [Glucophage 1000 mg] 500 mg PO DAILY@12 08/25/16 Apixaban [Eliquis] 2.5 mg PO BID #60 tab 08/27/16 Aspirin EC [Aspirin EC 81 mg (*)] 81 mg PO DAILY #30 tab 08/27/16 Diltiazem Cd [Cardizem ER 120 MG 120 mg PO DAILY #30 cap 08/27/16 (*)] Furosemide [Lasix 20 MG (*)] 20 mg PO DAILY #30 tab 08/27/16 Potassium Chloride 10 meq PO DAILY #30 tab.er.prt 08/27/16 Medical Decision Making - Diagnostics EKG Interpretation: EKG: Complete interpretation has been separately recorded in the [facility] archive. Summary impression: Atrial fibrillation with rate of about 110 Imaging: Chest x-ray shows no acute findings, interpreted by Radiology, images were reviewed by me. ED Course/Re-evaluation: In the emergency room, the patient received a dose of diltiazem with improvement in her rate and blood pressure. She had taken aspirin prior to arrival. Labs and studies returned revealing for a leukocytosis as well as elevated BNP. Infection is a consideration given her fast rate. Chest x-ray was unremarkable for CHF exacerbation or pneumonia. A UA has been ordered as well. Patient had no further episodes of chest pain in the emergency room. I discussed admission to the hospital with her and she is agreeable. Given her history of CAD, no recent cardiac testing with this concerning story of chest pain, I feel she warrants admission. I have discussed the case with the hospitalist service , and we plan to admit her. Differential Diagnosis: This is an 81-year-old female with atrial fibrillation, diastolic heart failure , history of CAD with stent in place presents from home with 2 episodes of chest pain this evening described as tightness throughout her chest associated with nausea, mild diaphoresis. No prior history of similar. Differential diagnosis includes ACS, GERD, anxiety, pulmonary embolism, aortic dissection. - Data Points Laboratory Results: Laboratory Results 10/18/16 22:40 10/18/16 22:40 10/18/16 10/18/16 22:40 22:40 WBC 16.86 10^3/uL H 10^3/uL (3.80-9.50) RBC 5.56 10^6/uL H 10^6/uL (4.18-5.33) Hgb 16.0 g/dL g/dL (12.6-16.3) Hct 47.9 % H % (38.0-47.0) MCV 86.2 fL fL (81.5-99.8) MCH 28.8 pg pg (27.9-34.1) MCHC 33.4 g/dL g/dL (32.4-36.7) RDW 14.9 % % (11.5-15.2) Plt Count 211 10^3/uL 10^3/uL (150-400) MPV 11.8 fL H fL (8.7-11.7) Neut % (Auto) 27.8 % L % (39.3-74.2) Lymph % (Auto) 65.4 % H % (15.0-45.0) [place] % (Auto) 4.2 % L % (4.5-13.0) Eos % (Auto) 1.9 % % (0.6-7.6) Baso % (Auto) 0.5 % % (0.3-1.7) Nucleat RBC Rel Count 0.1 % % (0.0-0.2) Absolute Neuts (auto) 4.69 10^3/uL 10^3/uL (1.70-6.50) Absolute Lymphs (auto) 11.03 10^3/uL H 10^3/uL (1.00-3.00) Absolute Monos (auto) 0.71 10^3/uL 10^3/uL (0.30-0.80) Absolute Eos (auto) 0.32 10^3/uL 10^3/uL (0.03-0.40) Absolute Basos (auto) 0.08 10^3/uL 10^3/uL (0.02-0.10) Absolute Nucleated RBC 0.02 10^3/uL H 10^3/uL (0-0.01) Immature Gran % 0.2 % % (0.0-1.1) Seg Neutrophils % 28 % % Lymphocytes % 66 % % Monocytes % 3 % % Eosinophils % 3 % % Immature Gran # 0.03 10^3/uL 10^3/uL (0.00-0.10) Absolute Seg Neuts 4.72 10^/uL 10^/uL (1.70-6.50) Absolute Lymphocytes 11.13 10^3/uL H 10^3/uL (1.00-3.00) Absolute Monocytes 0.51 10^3/uL 10^3/uL (0.30-0.80) Absolute Eosinophils 0.51 10^3/uL H 10^3/uL (0.03-0.40) Differential Comment RBC/WBC/PLT Morphology NORMAL (NORMAL) Atypical Lymphocytes 2+ H Smudge Cells 1+ H Platelet Estimate ADEQUATE (ADEQ) Smear Review By Pending Sodium 136 mEq/L mEq/L (134-144) Potassium 4.3 mEq/L mEq/L (3.5-5.2) Chloride 97 mEq/L mEq/L (97-110) Carbon Dioxide 25 mEq/l mEq/l (22-31) Anion Gap 14 mEq/L mEq/L (8-16) BUN 17 mg/dL mg/dL (7-23) Creatinine 0.7 mg/dL mg/dL (0.6-1.0) Estimated GFR > 60 Glucose 197 mg/dL H mg/dL (70-100) Calcium 9.7 mg/dL mg/dL (8.5-10.4) Troponin I < 0.012 ng/mL ng/mL (0-0.034) NT-Pro-B Natriuret Pep 1470 pg/mL H pg/mL (0-450) Medications Given: Discontinued Medications Diltiazem HCl (Cardizem 25 Mg/5 Ml Vial) 15 mg IVP EDNOW ONE Stop: 10/18/16 23:11 Last Admin: 10/18/16 23:37 Dose: 15 mg Departure - Departure Disposition: [facility] Inpatient Acute Clinical Impression: Chest pain Qualifiers: Chest pain type: unspecified Qualified Code(s): R07.9 - Chest pain, unspecified Atrial fibrillation Qualifiers: Atrial fibrillation type: chronic Qualified Code(s): I48.2 - Chronic atrial fibrillation Congestive heart failure Qualifiers: Congestive heart failure type: diastolic Congestive heart failure chronicity: chronic Qualified Code(s): I50.32 - Chronic diastolic (congestive) heart failure Condition: Fair
[2016-10-18] MEDS ORDERED: DILTIAZEM 25 MG/5 ML VIAL IVP ONE (23:10)
[2016-10-18 23:15] LABS: TROPONIN I < 0.012 ng/mL (0-0.034)
[2016-10-18 23:21] LABS: SCAN POSITIVE
[2016-10-18 23:55] LABS: PLATELET ESTIMATE ADEQUATE (ADEQ)
[2016-10-18 23:56] LABS: SMUDGE CELLS 1+
--- NOTE | 2016-10-19 00:23 | PDGENHP ---
History and Physical - Chief Complaint chest pain - History of Present Illness Patient is an 81/F with atrial fibrillation, diastolic CHF, CAD (PCI 2010), HLD , HTN and DM2 who presents to the ED with 2 episodes of chest pain. Patient was recently hospitalized at [facility] for newly diagnosed Afib and diastolic chf about 1 month ago, was initiated on rate controlling meds, anticoagulation with eliquis and a diuretic. Since discharge, patient has been feeling well until this evening. She reports at around 730-8pm she was walking toward her kitchen when she felt sudden onset substernal chest pressure/tightness that radiated into her left neck and associated with palpitations. She laid down and after about 20 minutes her symptoms completely resolved. Then at about 10pm, she again experienced the same substernal chest tightness, but this time increased in intensity, associated with feeling weak, mildly diaphoretic and nauseous. Her daughter witnessed this, so they decided to come to the ED for further evaluation. This second episode also lasted about 15-20 minutes and her symptoms had largely resolved by the time she arrived at the ED. On arrival to the ED, patient was mildly tachycardic and hypertensive, but afebrile, saturating well. EKG showed Afib with ST depression in lead, change from her previous. Labs revealed leukocytosis, normal BMP and negative troponin. She was given a dose of diltiazem with improvement in HR. Repeat EKG showed resolution of ST change with improved heart rate. She was then admitted to the hospitalist service for further management. History Information - Allergies/Home Medication List Allergies/Adverse Reactions: Alpha-Linoleic Acid [From [place] 3-6-9] Allergy (Mild, Verified 08/25/16 15:56) Other-Enter Comments Fatty Acid Combination No.8 [From [place] 3-6-9] Allergy (Mild, Verified 10/18/16 22:56) Other-Enter Comments fish oil [From [place] 3-6-9] Allergy (Mild, Verified 10/18/16 22:56) Other-Enter Comments Gamma Linoleic Acid [From [place] 3-6-9] Allergy (Mild, Verified 10/18/16 22:56) Other-Enter Comments Herbal Complex No. 137 [From [place] 3-6-9] Allergy (Mild, Verified 10/18/16 22:56 ) Other-Enter Comments linoleic acid [From [place] 3-6-9] Allergy (Mild, Verified 10/18/16 22:56) Other-Enter Comments lipase [From [place] 3-6-9] Allergy (Mild, Verified 10/18/16 22:56) Other-Enter Comments oleic acid [From [place] 3-6-9] Allergy (Mild, Verified 10/18/16 22:56) Other-Enter Comments omega-3 fatty acids [From [place] 3-6-9] Allergy (Mild, Verified 10/18/16 22:56) Other-Enter Comments paroxetine HCl [From Paxil] Allergy (Mild, Verified 10/18/16 22:56) vitamin E [From [place] 3-6-9] Allergy (Mild, Verified 10/18/16 22:56) Other-Enter Comments nadolol [From [place]] Allergy (Unknown, Verified 08/25/16 15:56) spironolactone [From Aldactone] Allergy (Unknown, Verified 08/25/16 15:56) labetalol [Labetalol] Allergy (Verified 08/25/16 15:56) Other-Enter Comments Sulfa (Sulfonamide Antibiotics) Allergy (Verified 08/25/16 15:56) Rash Home Medications: Multivitamins [Multivitamin (*)] 1 each PO DAILY 02/23/11 [Last Taken 08/25/16] Atorvastatin Calcium [Lipitor 10 mg (*)] 10 mg PO DAILY 08/25/16 [Last Taken 09/09] Cholecalciferol Vit D3 [Vitamin D3 (*)] 1,000 units PO DAILY 08/25/16 [Last Taken 08/25/16] Cyanocobalamin [Vitamin B12 (*)] 500 mcg PO DAILY 08/25/16 [Last Taken 08/25/16] Doxycycline Hyclate [Vibramycin 100 MG (*)] 100 mg PO DAILY@18 08/25/16 [Last Taken 08/24/16] Gabapentin [Neurontin 400 MG (*)] 400 mg PO QID 08/25/16 [Last Taken 08/25/16 12 :00] Herbals/Supplements -Info Only 1 ea PO DAILY 08/25/16 [Last Taken 08/25/16] Levothyroxine [Synthroid 50 mcg (*)] 50 mcg PO DAILY06 08/25/16 [Last Taken 09/09] Lisinopril [Zestril 40 mg (*)] 40 mg PO DAILY 08/25/16 [Last Taken 08/25/16] Metformin HCl [Glucophage 1000 mg] 1,000 mg PO BIDMEAL 08/25/16 [Last Taken 09/09 08:00] Metformin HCl [Glucophage 1000 mg] 500 mg PO DAILY@12 08/25/16 [Last Taken 08/25 12:00] Nebivolol HCl [Bystolic] 10 mg PO HS 08/25/16 [Last Taken 08/24/16] I have personally reviewed and updated: family history, medical history, social history, surgical history - Past Medical History Additional medical history: atrial fibrillation. diastolic CHF. CAD s/p PCI 2010. Hypertension. Hyperlipidemia. Hypothyroidism. CLL - Surgical History Additional surgical history: L thumb surgeries. hysterectomy. tonsillectomy. cataract repair - Family History Positive for: non-pertinent - Social History Smoking Status: Never smoked Alcohol Use: None Drug Use: None Additional social history: Patient lives with her daughter, walks independently. Review of Systems ROS: 10pt was reviewed & negative except for what was stated in HPI & below Physical Exam Temp Pulse Resp BP Pulse Ox 36.4 C 80 16 179/91 H 95 10/18/16 23:40 10/19/16 00:04 10/18/16 23:40 10/19/16 00:04 10/18/16 23:40 Constitutional: no apparent distress, appears nourished, not in pain Eyes: PERRL, anicteric sclera, EOMI Ears, Nose, Mouth, Throat: moist mucous membranes, hearing normal, ears appear normal, no oral mucosal ulcers Cardiovascular: no murmur, rub, or gallop, irregularly irregular, pulses symmetric bilaterally, edema (1+ bilateral edema), No JVD Peripheral Pulses: 2+: dorsalis-pedis (R), dorsalis-pedis (L) Respiratory: no respiratory distress, no rales or rhonchi, clear to auscultation Gastrointestinal: normoactive bowel sounds, soft, non-tender abdomen, no palpable masses, No tenderness, No guarding, No rebound, No distension Genitourinary: no bladder fullness, no bladder tenderness Skin: warm, normal color, no rashes or abrasions, no fluctuance, no induration, No mottled Musculoskeletal: full muscle strength, no muscle tenderness, normal joint ROM, no joint effusions Neurologic: AAOx3, sensation intact bilaterally, CN II-XII Intact, No weakness, No numbness, No facial droop Psychiatric: interacting appropriately, not anxious, not encephalopathic, thought process linear Lab Data & Imaging Review 10/18/16 22:40 10/18/16 22:40 WBC 16.86 10^3/uL (3.80-9.50) H 10/18/16 22:40 RBC 5.56 10^6/uL (4.18-5.33) H 10/18/16 22:40 Hgb 16.0 g/dL (12.6-16.3) 10/18/16 22:40 Hct 47.9 % (38.0-47.0) H 10/18/16 22:40 MCV 86.2 fL (81.5-99.8) 10/18/16 22:40 MCH 28.8 pg (27.9-34.1) 10/18/16 22:40 MCHC 33.4 g/dL (32.4-36.7) 10/18/16 22:40 RDW 14.9 % (11.5-15.2) 10/18/16 22:40 Plt Count 211 10^3/uL (150-400) 10/18/16 22:40 MPV 11.8 fL (8.7-11.7) H 10/18/16 22:40 Neut % (Auto) 27.8 % (39.3-74.2) L 10/18/16 22:40 Lymph % (Auto) 65.4 % (15.0-45.0) H 10/18/16 22:40 Hale % (Auto) 4.2 % (4.5-13.0) L 10/18/16 22:40 Eos % (Auto) 1.9 % (0.6-7.6) 10/18/16 22:40 Baso % (Auto) 0.5 % (0.3-1.7) 10/18/16 22:40 Nucleat RBC Rel Count 0.1 % (0.0-0.2) 10/18/16 22:40 Absolute Neuts (auto) 4.69 10^3/uL (1.70-6.50) 10/18/16 22:40 Absolute Lymphs (auto) 11.03 10^3/uL (1.00-3.00) H 10/18/16 22:40 Absolute Monos (auto) 0.71 10^3/uL (0.30-0.80) 10/18/16 22:40 Absolute Eos (auto) 0.32 10^3/uL (0.03-0.40) 10/18/16 22:40 Absolute Basos (auto) 0.08 10^3/uL (0.02-0.10) 10/18/16 22:40 Absolute Nucleated RBC 0.02 10^3/uL (0-0.01) H 10/18/16 22:40 Immature Gran % 0.2 % (0.0-1.1) 10/18/16 22:40 Seg Neutrophils % 28 % 10/18/16 22:40 Lymphocytes % 66 % 10/18/16 22:40 Monocytes % 3 % 10/18/16 22:40 Eosinophils % 3 % 10/18/16 22:40 Immature Gran # 0.03 10^3/uL (0.00-0.10) 10/18/16 22:40 Absolute Seg Neuts 4.72 10^/uL (1.70-6.50) 10/18/16 22:40 Absolute Lymphocytes 11.13 10^3/uL (1.00-3.00) H 10/18/16 22:40 Absolute Monocytes 0.51 10^3/uL (0.30-0.80) 10/18/16 22:40 Absolute Eosinophils 0.51 10^3/uL (0.03-0.40) H 10/18/16 22:40 RBC/WBC/PLT Morphology NORMAL (NORMAL) 10/18/16 22:40 Atypical Lymphocytes 2+ H 10/18/16 22:40 Smudge Cells 1+ H 10/18/16 22:40 Platelet Estimate ADEQUATE (ADEQ) 10/18/16 22:40 Sodium 136 mEq/L (134-144) 10/18/16 22:40 Potassium 4.3 mEq/L (3.5-5.2) 10/18/16 22:40 Chloride 97 mEq/L (97-110) 10/18/16 22:40 Carbon Dioxide 25 mEq/l (22-31) 10/18/16 22:40 Anion Gap 14 mEq/L (8-16) 10/18/16 22:40 BUN 17 mg/dL (7-23) 10/18/16 22:40 Creatinine 0.7 mg/dL (0.6-1.0) 10/18/16 22:40 Estimated GFR > 60 10/18/16 22:40 Glucose 197 mg/dL (70-100) H 10/18/16 22:40 Calcium 9.7 mg/dL (8.5-10.4) 10/18/16 22:40 Troponin I < 0.012 ng/mL (0-0.034) 10/18/16 22:40 NT-Pro-B Natriuret Pep 1470 pg/mL (0-450) H 10/18/16 22:40 Visualized and Interpreted Chest x-ray results: Yes Chest X-Ray results: no infiltrate, normal Visualized and Interpreted EKG results: Yes EKG additional interpertation: 1st: afib with ST depression in lead I, ? jc in aVR. Repeat: afib, with no ST/T wave changes Assessment & Plan Assessment: Patient is an 81/F with afib, hypertension, DM2, hld and hypothyroidism who presents to the ED with a complaint of two distinct episodes of chest pain this evening. Plan: # chest pain Patient's description of the pain is concerning for cardiac etiology and initial EKG with elevated heart rate does have some ST changes. Symptoms and EKG changes have normalized with improvement in heart rate and initial troponin was negative. Will trend troponins, monitor serial EKGs and given her previous history of CAD, will check NM stress test if ACS is ruled out. # afib HR initially elevated on presentation, which has improved with a dose of IV diltiazem. Will continue home rate controlling med and Eliquis. # hypertension BP is elevated on presentation. Will continue home med regimen, consider uptitrating if needed. # chronic diastolic CHF Patient with minimal lower extremity and pulmonary edema, but not significantly fluid overloaded on presentation today. Will give IV lasix while inpatient and monitor weights. # hypothyroidism Diagnosed in previous admission about 6 weeks ago and was initiated on levothyroxine at that time. Given an adequate passage of time, will recheck TSh and adjust dose if needed. # HLD Cont home meds. # leukocytosis, CLL WBC moderately elevated today, however, given history of CLL, always slightly up. Patient does not complain of any infectious symptoms, cxr and ua are negative. # dm2 Monitor FS and cover with sliding scale insulin # gen: NPO DVT ppx: eliquis Full code
[2016-10-19 00:40] LABS: COLOR PALE YELLOW; LEUKOCYTE ESTERASE,URINE NEGATIVE (NEGATIVE); NITRITE,URINE NEGATIVE (NEGATIVE)
[2016-10-19] MEDS ORDERED: ONDANSETRON 4 MG/2 ML VIAL IVP PRN (00:43)
[2016-10-19] MEDS ORDERED: ACETAMINOPHEN 325 MG TAB PO PRN (00:43)
[2016-10-19] MEDS ORDERED: ONDANSETRON DISINTEGRATING 4 MG TAB PO PRN (00:43)
--- NOTE | 2016-10-19 00:44 | CPEKG ---
Heart Rate: 79 RR Interval: 759 QRSD Interval: 80 QT Interval: 408 QTC Interval: 468 QRS [place]: 6 T Wave [place]: 12 EKG Severity - ABNORMAL ECG - EKG Impression: ATRIAL FIBRILLATION, V-RATE 70-91 Electronically Signed By: Marina Rivas 19-Oct-2016 07:25:31
[2016-10-19] MEDS ORDERED: D50W 25 GM/50 ML SYR IVP PRN (01:17)
[2016-10-19] MEDS: hydrALAZINE 20 MG/ML VIAL IVP PRN ×2 (03:03→16:06)
[2016-10-19 05:24] LABS: ADD MORPH? NO; FRAGMENT RBC FLAG 0 (0-99); HEMATOCRIT 44.7 % (38.0-47.0); HEMOGLOBIN 14.7 g/dL (12.6-16.3); LEFT SHIFT FLG 0 (0-99); LIPEMIA HEMOLYSIS FLAG 80 (0-99); MEAN CELL HEMOGLOBIN 27.7 pg (27.9-34.1); MEAN CELL HEMOGLOBIN CONCENTR. 32.9 g/dL (32.4-36.7); MEAN CELL VOLUME 84.3 fL (81.5-99.8); PLATELET CLUMPS FLAG 0 (0-99); PLATELET COUNT 203 10^3/uL (150-400); RED CELL DISTRIBUTION WIDTH 14.8 % (11.5-15.2)
[2016-10-19 05:28] LABS: ADD DIFF? YES; ATYPICAL LYMPHOCYTE FLAG 100 (0-99)
[2016-10-19 05:29] LABS: ADD SCAN? NO
[2016-10-19 05:33] LABS: ANION GAP 16 mEq/L (8-16); CALCIUM 9.2 mg/dL (8.5-10.4); CARBON DIOXIDE 21 mEq/l (22-31); CHLORIDE 99 mEq/L (97-110); CREATININE 0.7 mg/dL (0.6-1.0); GLOMERULAR FILTRATION RATE > 60; GLUCOSE 198 mg/dL (70-100); MAGNESIUM 1.5 mg/dL (1.6-2.3); POTASSIUM 3.9 mEq/L (3.5-5.2); SODIUM 136 mEq/L (134-144)
[2016-10-19 05:40] LABS: TROPONIN I 0.143 ng/mL (0-0.034)
[2016-10-19 05:50] LABS: CREATINE KINASE-MB FRACTION 3.38 ng/mL (0-3.19)
[2016-10-19 05:57] LABS: PLATELET ESTIMATE ADEQUATE (ADEQ)
[2016-10-19] MEDS ORDERED: LEVOTHYROXINE 50 MCG TAB PO ONE (06:00)
[2016-10-19] MEDS ORDERED: GABAPENTIN 400 MG CAP PO ONE (06:00)
[2016-10-19 06:01] LABS: SMUDGE CELLS 1+
[2016-10-19 06:33] LABS: CK-MB INTERPRETATION POSITIVE (NEGATIVE)
[2016-10-19] MEDS: ASPIRIN 325 MG TAB PO SCH ×2 (06:49→07:52)
--- NOTE | 2016-10-19 09:18 | CPEKG ---
Heart Rate: 83 RR Interval: 723 QRSD Interval: 82 QT Interval: 436 QTC Interval: 513 QRS [place]: 4 T Wave [place]: -10 EKG Severity - ABNORMAL ECG - EKG Impression: ATRIAL FIBRILLATION, V-RATE 66-112 EKG Impression: BORDERLINE T ABNORMALITIES, INFERIOR LEADS EKG Impression: PROLONGED QT INTERVAL EKG Impression: Low voltage frontal leads EKG Impression: Slow R-wave progression EKG Impression: No significant change from October 19, 2016, 0:41 Electronically Signed By: Ryan Toussaint 19-Oct-2016 12:16:53
[2016-10-19] MEDS: INSULIN LISPRO 100 UNIT/ML SC SCH ×3 (09:26→18:30)
--- NOTE | 2016-10-19 10:03 | HOSPPROG ---
Hospitalist Progress Note Assessment/Plan: DIAGNOSES: -SUSPECTED ACUTE CORONARY SYNDROME WITH TYPICAL ANGINA SYMPTOMS AND ELEVATED TROPONIN AND CK MB -CHRONIC CHF WITH PERIPHERAL EDEMA AT BASELINE -RATE CONTROLLED ATRIAL FIBRILLATION At this time she has no recurrent angina is not in acute heart failure or better arrhythmia. She will be seen by Cardiology with plans to cath her but will need to wait she has been taking Eliquis. If she develops intractable angina or progressive heart failure or other complications we can always proceed with the angiogram more quickly. Regarding her heart failure she does not recall being told about low-salt diet. She does have side effects from Lasix. She only takes that intermittently based on her weight. I instructed her and her daughter on low-salt diet will use compression stockings as well. PLANS: -continue to watch closely on monitor technician -check lipid panel -begin low-salt diet and education further regarding that and will use Eliseo stockings -hold Eliquis for now -Plan on angiography in 24-48 hours but will go sooner if clinical indications arise I reviewed the case in detail this morning with Torito Mccarthy of Cardiology and will review with Dr. genao as well SUBJECTIVE: No recurrent angina Not short of breath Has some swelling of the legs which is at her baseline OBJECTIVE Vitals reviewed: Stable without fever Rubber Cutter, my review: Exam: alert oriented skin warm dry color ok resps not labored lungs clear BSs heart regular abd soft nondistended nontender, bowel sounds present limbs warm, 1 to 2+ pitting edema both legs up to mid calf iv site ok Laboratory data: 2nd troponin and CK-MB both come back positive Repeat EKG, my interpretation: No ischemic changes noted, rate controlled atrial fibrillation Objective: Vital Signs Temp Pulse Resp BP Pulse Ox 36.5 C 77 20 156/84 H 95 10/19/16 08:25 10/19/16 08:25 10/19/16 08:25 10/19/16 09:23 10/19/16 08:25 Laboratory Results 10/19/16 03:41 10/19/16 03:41 10/18/16 10/19/16 10/20/16 06:59 06:59 06:59 Intake Total 220 Balance 220 ICD10 Worksheet Patient Problems: Problems Problem Status Onset Atrial fibrillation Acute Chest pain Acute Congestive heart failure Acute Peripheral edema Acute Rapid atrial fibrillation Acute
[2016-10-19] MEDS ORDERED: HEPARIN 10,000 UNIT/10 ML MDV IVP PRN (10:50)
[2016-10-19] MEDS ORDERED: HEPARIN 10,000 UNIT/10 ML MDV IVP ONE (10:50)
[2016-10-19] MEDS ORDERED: TEMAZEPAM 15 MG CAP PO PRN (10:54)
[2016-10-19] MEDS ORDERED: HEPARIN/DEXTROSE 500 ML IV SCH (11:00)
[2016-10-19] MEDS ORDERED: POTASSIUM CL 20 MEQ/15 ML UDCUP PO ONE ×2 (11:35→23:12)
[2016-10-19] MEDS: LISINOPRIL 40 MG TAB PO SCH (11:38)
[2016-10-19] MEDS: FUROSEMIDE 40 MG/4 ML VIAL IVP SCH (11:38)
[2016-10-19] MEDS ORDERED: MAGNESIUM SULF 1 GM/DEXTROSE 100 ML IV ONE (11:41)
[2016-10-19 11:59] LABS: INR 1.13 (0.83-1.16); PROTIME(PATIENT) 14.4 SEC (12.0-15.0)
[2016-10-19 12:00] LABS: APTT 27.4 SEC (23.0-38.0)
--- NOTE | 2016-10-19 12:08 | ECHO ---
[id number] + + [address] : : [place] [address] : : [phone] + + Adult Echocardiographic Report + ------+ :Name: ERWIN BECK SStudy Date: 10/19/2016 11:09 AM : : Hospital Admission Number: [id number] Locatio n: 201: :: 1935 Gender: Female Height: 64 in : :Age: 81 yrs Race: WH Weight: 120 lb : :Reason For Study: Chest pain/Afib/Elevated troponin : : BSA: 1.6 meters 2 : + ------+ MMode/2D Measurements \T\ Calculations IVSd: 0.79 cm LVIDd: 4.1 cm FS: 36.7 % Ao root diam: LVPWd: 0.65 cm LVIDs: 2.6 cm EDV(Teich): 3.2 cm 72.9 ml LA dimension: ESV(Teich): 4.0 cm 24.1 ml EF(Teich): 67.0 % LVLd ap4: 6.5 cm SV(MOD-sp4): EDV(MOD-sp4): 32.0 ml 45.0 ml LVLs ap4: 5.8 cm ESV(MOD-sp4): 13.0 ml EF(MOD-sp4): 71.1 % Normal Measurement Values: + + :LVIDd (3.5-5.7cm) IVSd (0.6-1.1cm) LVPWd (0.6-1.1cm) Aortic Root (2.0-3.7cm)Left Atrium (1.5-4.0cm): :LV Vol(d) (76-115ml) LV Vol(s) (29-48ml) Ejec Fraction (50-65%)PV Anthony (0.6- 1.2m/s) TV Anthony (0.4-1.0m/s) : :MV E Anthony (0.8-1.0m/s)MV A Anthony (0.3-1.0m/s)LVOT Anthony (0.7-1.2m/s) Asc Ao Anthony ( 0.9-1.8m/s) : + + Doppler Measurements \T\ Calculations MV E max anthony: Ao V2 max: AI max anthony: TR max anthony: 104.6 cm/sec 85.2 cm/sec 411.0 cm/sec 332.5 cm/sec MV A max anthony: Ao max PG: AI max P.6 mmHgTR max P.6 cm/sec 2.9 mmHg AI dec slope: 44.2 mmHg MV E/A: 3.7 203.8 cm/sec2 RAP systole: AI P1/2t: 590.5 msec10.0 mmHg RVSP(TR): 54.2 mmHg Left Ventricle The left ventricle is normal in size. There is normal left ventricular wall thickness. Left ventricular systolic function is normal. Ejection Fraction = 65-70%. No regional wall motion abnormalities noted. Right Ventricle The right ventricle is normal in size and function. Atria The left atrium is mild to moderately dilated. The right atrium is mildly dilated. The interatrial septum is intact with no evidence for an atrial septal defect. Mitral Valve Calcified anterior mitral leaflet. There is no evidence of mitral valve prolapse. There is no mitral valve stenosis. There is mild mitral regurgitation. Tricuspid Valve Normal tricuspid valve. There is moderate to severe tricuspid regurgitation. Right ventricular systolic pressure is 55mmHg. There is Doppler evidence for mild pulmonary hypertension. Aortic Valve The aortic valve is trileaflet. The aortic valve opens well. There is no aortic stenosis. Mild aortic regurgitation. Pulmonic Valve The pulmonic valve is normal in structure and function. There is no pulmonic valvular regurgitation. Great Vessels The aortic root is normal size. Pericardium/Pleural There is no pericardial effusion. Conclusion A complete two-dimensional transthoracic echocardiogram was performed (2D, M-mode, Doppler and color flow Doppler). Left ventricular systolic function is normal. Ejection Fraction = 65-70%. The left atrium is mild to moderately dilated. The right atrium is mildly dilated. Calcified anterior mitral leaflet. There is mild mitral regurgitation. Right ventricular systolic pressure is 55mmHg. There is Doppler evidence for mild pulmonary hypertension. There is moderate to severe tricuspid regurgitation. Mild aortic regurgitation. Final Reading Physician: Yahir Ibarra signed on 10/19/2016 12:07 PM Ordering Physician: Torito Mccarthy Performed By: Omayra Regalado RDCS
--- NOTE | 2016-10-19 12:26 | GCON ---
[f rep st] CONSULTATION CARDIOLOGY CONSULTATION INDICATION FOR CARDIOLOGY CONSULTATION: Chest pressure, abnormal electrocardiogram, and elevated troponin. HISTORY OF PRESENT ILLNESS: The patient is an 81-year-old female who is known to our practice. She has a significant past history that includes coronary artery disease with previous PCI of the LAD, persistent atrial fibrillation recently diagnosed in August with rate management and anticoagulation plan, type 2 diabetes, hypertension, hyperlipidemia, hypothyroidism, and history of leukemia. As mentioned above, patient with recent hospital discharge from [facility] on September 14 with new diagnosis of atrial fibrillation. At that time, it was decided to treat her with rate management and anticoagulation. She reports since hospital discharge she had been feeling fairly well, reporting still noticing dyspnea on exertion, but no significant episodes of chest pressure or pain. She reports that she has been mostly in her normal state of health until last evening, around 8:00 p.m., which she reports she was sitting in her chair, she stood up suddenly, felt a palpitation in her chest with midsternal chest pressure with radiation up into her upper neck. This was associated with nausea and some diaphoresis. She sat back down , laid down, reporting symptoms subsided within 15-20 minutes, but decided to rest until 10:00 p.m., in which she stood back up again, experiencing similar symptoms. At that time, she told her daughter, who felt it would be best for her to be further evaluated and brought her to the emergency department. She reports by the time of her arrival, she had no chest pressure or the associated symptoms. Initial electrocardiogram in the ED did show atrial fibrillation. It was noted that she had now inverted T-waves in lead I and aVL. In comparison to electrocardiogram done August 27, this is new. Initial troponin was negative, noted to have mildly elevated BNP at 1470, and her heart rate was more elevated in low 100's. She was given IV diltiazem and Lasix drip. Since then, she was transferred up to the PCU for further evaluation and cycling of troponins. Unfortunately, during the night, noted that her troponin initially bumped at 0.143 in 6 hours, and at 9:00 this morning, it was 0.180. She reports she has had no further chest pressure since hospitalization. She denies any recent fevers, chills, night sweats. Denies any bleeding issues reported. She has been on Eliquis for anticoagulation, and her last dose was at 9:00 p.m. last evening. She reports she has been medication compliant. Since being on telemetry, her rate has been well controlled. She remains in atrial fibrillation. Her a.m. electrocardiogram appears unchanged. She has significant cardiac risk factors that include age, hypertension, hyperlipidemia , diabetes, and known history of CAD. Her most recent cardiac catheterization was February of 2011, in which she had a single CASSIDY implantation of her LAD, but it was noted that she had moderate disease in also her RCA and circumflex. Most recent echocardiogram was August 26, in which she was noted to have EF of 55% to 60%, diastolic dysfunction, normal LV size and function, LA is mildly dilated, mild aortic regurgitation, [id number] MR, trace MT, moderate TR, mildly elevated RVSP at 43 mmHg. PAST MEDICAL HISTORY: 1. CAD. 2. Persistent atrial fibrillation. 3. Chronic diastolic heart failure. 4. Hypertension. 5. Hyperlipidemia. 6. Hypothyroidism. 7. CLL. PAST SURGICAL HISTORY: Includes: 1. Thumb surgeries. 2. Hysterectomy. 3. Tonsillectomy. 4. Cardiac repair. 5. PCI of the LAD in 2010, with CASSIDY implantation. FAMILY HISTORY: Patient denies any significant cardiac history. 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 She was , for 3 years. She denies any alcohol use. She has 2 daughters who are both healthy and well. She denies any illicit drug use. ALLERGIES: The patient has multiple allergies, including omega-3, 6, and 9; Paxil; Corgard; Aldactone; labetalol; and sulfa. MEDICATIONS: At home include: 1. Metformin 1500 mg b.i.d. 2. Potassium chloride 10 mEq p.o. daily as needed. 3. Bystolic 10 mg p.o. at h.s. 4. Multivitamin daily. 5. Lisinopril 40 mg p.o. daily. 6. Synthroid 50 mcg p.o. daily. 7. Neurontin 400 mg q.i.d. 8. Lasix 20 mg p.o. daily p.r.n. 9. Vibramycin 100 mg p.o. daily. 10. Diltiazem ER 120 mg p.o. daily. 11. Vitamin B12 500 mcg p.o. daily. 12. Vitamin D 1000 units p.o. daily. 13. Atorvastatin 10 mg p.o. daily. 14. Aspirin 81 mg daily. 15. Eliquis 2.5 mg p.o. b.i.d. PHYSICAL EXAMINATION: GENERAL APPEARANCE: Medium build, well-groomed, female. She is alert and oriented to person, place, time, and situation. Appears to be in no acute distress. CURRENT VITAL SIGNS: Blood pressure 156/84. Heart rate is 77, atrial fibrillation on the monitor, irregular. Respirations 20, saturation 95% on room air. Temperature of 36.5 degrees Celsius. HEENT: Head is normocephalic. Lips are pink and moist with no signs of cyanosis. Conjunctivae pink. NECK: Trachea is midline, +2 carotid pulses bilateral. No auscultated bruits. Jugular vein elevation 5-6 cm above sternal notch at a 45-degree angle. RESPIRATORY: Lungs clear to auscultation, no rhonchi, rales or wheezes. No accessory muscle use. No intercostal muscle retraction noted. CARDIAC: Regular rate, irregular rhythm, S1, S2, 2/6 systolic murmur noted along the left sternal border. ABDOMEN: Soft , nontender, bowel sounds x4 quadrants. No organomegaly. No palpable masses. SKIN: [place], warm, dry. No cyanosis. No clubbing; +1 peripheral edema bilateral lower extremities to knees. VASCULAR: +2 carotids bilateral, +2 radials bilateral, +1 dorsal pedal and posterior tibial pulses bilateral. NEURO : Cranial nerves 2-12 grossly intact. LABORATORY STUDIES: Laboratory studies drawn this morning showed WBC of 13.93, hemoglobin of 14.7, hematocrit of 44.7, platelet count of 203, sodium of 136, potassium 3.9, chloride 99, CO2 21, BUN 15, creatinine 0.7, glucose 198, calcium 9.2, magnesium 1.5, CK of 44, CK-MB fraction 3.38, CK-MB percentage 7.7. Initial troponin on admission was less than 0.012. Repeated at 3:00 a.m. was 0.143, and then at 9:00 a.m. this morning was 0.180. TSH was elevated at 7.770. BNP on admission was 1470. UA done showed trace ketones, +2 glucose. STUDIES: Electrocardiograms as mentioned above. Chest x-ray shows minimal CHF , but no visible effusions. ASSESSMENT AND PLAN: 1. Chest pressure: Patient reporting ongoing episode of chest pressure with noted palpitation, with associated symptoms of nausea and diaphoresis 2 times last evening. Currently, pain-free, noted to have elevated troponin levels, and new EKG changes with inverted T-waves in the lateral leads. Patient known history of coronary artery disease with previous percutaneous coronary intervention of the LAD and known to have moderate disease in her circumflex and RCA. Most recent echocardiogram done last month showed normal LV wall motion with normal ejection fraction. At this time, with the patient's significant past medical history, it is concerning that this potentially of acute coronary syndrome. Further evaluation for cardiac ischemia should be done. I did discuss with Dr. Butler and would like to proceed with coronary catheterization, but due to patient being currently pain-free, we would like to hold off until at least tomorrow, allowing her to be off Eliquis for at least a day to a day and half to prevent any bleeding complications. Until then, I would like to get a repeat echocardiogram today to evaluate her LV wall motion and make sure no wall motion abnormality. She has been started on aspirin therapy. I will resume her beta-helena dose from home, and due to her being off anticoagulation with elevated troponins, we will start her on a heparin drip. If need be, if her symptoms do recur, then we may change her cardiac catheterization to more of an urgent. Will plan to make her n.p.o. after midnight, with cardiac catheterization to be done by Dr. Butler tomorrow. 2. Paroxysmal atrial fibrillation: The patient has been noted to be well rate controlled on current regimen until last evening with chest pressure. She is currently well rate controlled at this time. As mentioned above, I have resumed her Bystolic. Will also resume her home dose of diltiazem. Will hold her Eliquis, as mentioned above, and start her on heparin. She does have a significant CHADS-VASc score of 7. Consideration can be made of placing her on a Holter monitoring to evaluate her rate control as an outpatient. 3. Hyperlipidemia: Patient has been resumed on her statin therapy, fasting lipid panel in a.m. 4. Hypertension: Blood pressure is significantly elevated. As mentioned above , have restarted her home doses of Bystolic and Cardizem, and will restart her home dose of lisinopril. 5. Chronic diastolic heart failure, BNP mildly elevated on admission. She has received 1 dose of IV Lasix last evening. Will repeat it this morning, evaluate electrolyte and renal function later this afternoon. Potentially, she may need to be on a full-time oral dose at home instead of p.r.n. We will continue to monitor. Daily weights. I and O's 7. Hypothyroidism: She is being followed by the hospitalist services. She is on Synthroid. 8. Diabetes: Elevated blood sugars, has been started on insulin by the hospitalist. Thank you for this consultation. We will be glad to follow along with you. /[id number]/MODL MTDD
[2016-10-19 16:13] LABS: ANION GAP 16 mEq/L (8-16); CARBON DIOXIDE 31 mEq/l (22-31); CHLORIDE 96 mEq/L (97-110); CREATININE 0.8 mg/dL (0.6-1.0); GLOMERULAR FILTRATION RATE > 60; GLUCOSE 171 mg/dL (70-100); MAGNESIUM 2.4 mg/dL (1.6-2.3); POTASSIUM 3.7 mEq/L (3.5-5.2); SODIUM 143 mEq/L (134-144)
[2016-10-19 16:24] LABS: TROPONIN I 0.159 ng/mL (0-0.034)
[2016-10-19] MEDS: GABAPENTIN 400 MG CAP PO SCH ×3 (16:40→23:33)
[2016-10-19] MEDS: DOXYCYCLINE HYCLATE 100 MG CAP/TAB PO SCH (17:14)
[2016-10-19] MEDS: DILTIAZEM CD 120 MG CAP PO SCH (17:14)
[2016-10-19] MEDS ORDERED: metFORMIN HCL 500 MG TAB PO SCH (18:00)
[2016-10-19] MEDS ORDERED: NON-FORMULARY NEW DRUG (Metformin Hcl [Glucophage 1000 Mg] 1,000 MG) PO SCH (18:00)
[2016-10-19] MEDS ORDERED: NON-FORMULARY NEW DRUG (Nebivolol Hcl [Bystolic] 10 MG) PO SCH (21:00)
[2016-10-19] MEDS: ATORVASTATIN CALCIUM 10 MG TAB PO SCH (21:10)
[2016-10-19] MEDS: NEBIVOLOL HCL 5 MG TAB PO SCH (21:10)
[2016-10-19 22:40] LABS: POTASSIUM 3.5 mEq/L (3.5-5.2)
[2016-10-20 04:35] LABS: % IMMATURE GRANULYOCYTES 0.1 % (0.0-1.1); ABSOLUTE IMMATURE GRANULOCYTES 0.02 10^3/uL (0.00-0.10); ADD DIFF? NO; ADD MORPH? NO; ADD SCAN? NO; ATYPICAL LYMPHOCYTE FLAG 10 (0-99); FRAGMENT RBC FLAG 0 (0-99); HEMATOCRIT 45.5 % (38.0-47.0); LEFT SHIFT FLG 0 (0-99); LIPEMIA HEMOLYSIS FLAG 80 (0-99); MEAN CELL HEMOGLOBIN 28.3 pg (27.9-34.1); MEAN CELL VOLUME 85.8 fL (81.5-99.8); MEAN PLATELET VOLUME 12.3 fL (8.7-11.7); PLATELET CLUMPS FLAG 0 (0-99); PLATELET COUNT 214 10^3/uL (150-400); RED CELL DISTRIBUTION WIDTH 15.4 % (11.5-15.2)
[2016-10-20 04:46] LABS: APTT 75.4 SEC (23.0-38.0)
[2016-10-20 04:49] LABS: INR 1.17 (0.83-1.16); PROTIME(PATIENT) 14.9 SEC (12.0-15.0)
[2016-10-20 04:54] LABS: ANION GAP 12 mEq/L (8-16); CALCIUM 9.4 mg/dL (8.5-10.4); CARBON DIOXIDE 22 mEq/l (22-31); CHLORIDE 99 mEq/L (97-110); CHOLESTEROL 99 mg/dL (140-220); CHOLESTEROL/HDL RATIO 2.83 RATIO (1.00-4.44); CREATININE 0.9 mg/dL (0.6-1.0); GLOMERULAR FILTRATION RATE > 60; GLUCOSE 186 mg/dL (70-100); HIGH DENSITY LIPOPROTEIN 35 mg/dL (40-85); LDL/HDL RATIO 1.14 RATIO (1.00-3.22); LOW DENSITY LIPOPROTEIN 40 mg/dL (80-100); MAGNESIUM 1.9 mg/dL (1.6-2.3); NON-HIGH DENSITY LIPOPROTEIN 64 mg/dL (90-129); POTASSIUM 4.5 mEq/L (3.5-5.2); SODIUM 133 mEq/L (134-144); TRIGLYCERIDE 121 mg/dL (35-135); VERY LOW DENSITY LIPOPROTEINS 24 mg/dL (8-25)
[2016-10-20 04:59] LABS: TROPONIN I 0.151 ng/mL (0-0.034)
[2016-10-20] MEDS ORDERED: NS 1,000 ML IV ONE (06:00)
[2016-10-20] MEDS ORDERED: DIAZEPAM 5 MG TAB PO ONE (06:00)
[2016-10-20] MEDS ORDERED: diphenhydrAMINE 25 MG CAP PO ONE ×2 (06:00→13:57)
[2016-10-20] MEDS: LEVOTHYROXINE 50 MCG TAB PO SCH (06:12)
[2016-10-20] MEDS: GABAPENTIN 400 MG CAP PO SCH ×4 (06:13→23:54)
--- NOTE | 2016-10-20 08:33 | CPEKG ---
Heart Rate: 76 RR Interval: 789 QRSD Interval: 74 QT Interval: 420 QTC Interval: 473 QRS [place]: -12 T Wave [place]: -21 EKG Severity - ABNORMAL ECG - EKG Impression: ATRIAL FIBRILLATION EKG Impression: NONSPECIFIC T ABNORMALITIES, INFERIOR LEADS EKG Impression: Low voltage frontal leads EKG Impression: Slow R-wave progression EKG Impression: No significant change from October 19, 2016 Electronically Signed By: Ryan Toussaint 20-Oct-2016 14:05:30
[2016-10-20] MEDS: LISINOPRIL 40 MG TAB PO SCH (09:18)
[2016-10-20] MEDS: CHOLECALCIFEROL VIT D3 1,000 UNITS TAB PO SCH (09:19)
[2016-10-20] MEDS: CYANO/VITAMIN B12 1000 MCG TAB PO SCH (09:19)
[2016-10-20] MEDS: MULTIVITAMINS 1 EACH TAB PO SCH (09:19)
[2016-10-20] MEDS: INSULIN LISPRO 100 UNIT/ML SC SCH ×3 (09:25→23:54)
[2016-10-20] MEDS ORDERED: METFORMIN HCL 500 MG PO SCH (12:00)
[2016-10-20] MEDS ORDERED: metFORMIN HCL 500 MG TAB PO SCH (12:00)
[2016-10-20] MEDS ORDERED: ASPIRIN EC 325 MG TAB PO ONE (13:57)
[2016-10-20] MEDS ORDERED: MIDAZOLAM 2 MG/2 ML VIAL ONE (17:19)
[2016-10-20] MEDS ORDERED: LIDOCAINE 1% 30 ML SDV ONE (17:19)
[2016-10-20] MEDS ORDERED: fentaNYL 100 MCG/2 ML INJ ONE (17:19)
[2016-10-20] MEDS ORDERED: IOPAMIDOL (ISOVUE-300) 150 ML BTL IV ONE (17:20)
[2016-10-20] MEDS ORDERED: HEPARIN 10,000 UNIT/10 ML MDV ONE (17:52)
[2016-10-20] MEDS ORDERED: NITROGLYCERIN 1,500 MCG/15 ML VIAL MISC ONE (18:02)
[2016-10-20] MEDS ORDERED: CLOPIDOGREL BISULFATE 75 MG TAB ONE (18:06)
[2016-10-20] MEDS ORDERED: NITROGLYCERIN 0.4 MG BTL SL PRN (18:25)
[2016-10-20] MEDS ORDERED: CLOPIDOGREL BISULFATE 75 MG TAB PO ONE (18:25)
[2016-10-20] MEDS ORDERED: ATROPINE SULFATE 1 MG/10 ML SYR IVP PRN (18:25)
[2016-10-20] MEDS ORDERED: NS 1,000 ML IV SCH (18:30)
--- NOTE | 2016-10-20 18:31 | PDDXCAT ---
Diagnostic Cath Note - . Date: 10/20/16 Wireline Supervisor: Luke Indication: CCC Class III and IV angina on medical treatment - Procedure Access: right groin Procedure: left heart catheterization, coronary angiography, left ventriculogram - Materials Left Heart Cath size: 5F Left Heart Cath materials: standard multipack (JL4, JR4, pigtail) - Findings-Left Heart Catheterization LM: Unobstructed LAD: Stents widely patent with no new obstruction LCX: Unobstructed RCA: Subtotal stenosis at the crux of the heart. 70% stenosis proximal EDP: 11 mm of mercury LVEF: 60% Wall motion: Normal Complications: None Closure method: manual pressure Assessment: Acute coronary syndrome with subtotal stenosis of the distal right coronary. Patent LAD stent. Preserved LV systolic function. Plan: PCI and stenting of the distal right coronary Intervention: After reviewing diagnostic angiograms it was elected proceed with PCI. Patient was anticoagulated with heparin. Therapeutic ACT was confirmed. Using a 5 [place] JR4 guiding catheter the right coronary selectively intubated guiding shots were performed. Using a 0.014 luge wire the RCA stenosis was crossed. He was primarily stented with a 2.75 x 32 mm synergy stent. Repeat angiograms revealed HONG grade 3 flow with a shift of plaque proximally. A 2nd 3.0 x 16 mm synergy stent was placed on the wire would not cross the proximal end of the stent. The system was withdrawn. A 0.014 mailman wire was used to cross the stenosis. The stent would not cross. The luge wire was then used as a elizabeth wire. The stent was placed across the proximal edge and deployed using a single inflation. Repeat angiogram showed HONG grade 3 flow. Orthogonal angiograms were performed. Conclusions successful PCI and stenting of the distal right coronary. Continue aggressive secondary prevention. Patient will need triple coverage for 30 days. This will include dual antiplatelet therapy plus Eliquis. Patient Problems: Problems Problem Status Onset Congestive heart failure Acute Peripheral edema Acute Rapid atrial fibrillation Acute Chest pain Acute Atrial fibrillation Acute
--- NOTE | 2016-10-20 19:00 | CPEKG ---
Heart Rate: 106 RR Interval: 566 P-R Interval: 169 QRSD Interval: 72 QT Interval: 364 QTC Interval: 484 P [place]: 0 QRS [place]: -33 T Wave [place]: 102 EKG Severity - ABNORMAL ECG - EKG Impression: ATRIAL FIBRILLATION EKG Impression: LEFT AXIS DEVIATION EKG Impression: LVH WITH SECONDARY REPOLARIZATION ABNORMALITY EKG Impression: NO SIGNIFICANT CHANGE FROM OCTOBER 20, 2016, 8:31 Electronically Signed By: Ryan Toussaint 21-Oct-2016 07:06:15
[2016-10-20] MEDS: ATORVASTATIN CALCIUM 10 MG TAB PO SCH (20:48)
[2016-10-20] MEDS: NEBIVOLOL HCL 5 MG TAB PO SCH (20:48)
--- NOTE | 2016-10-20 21:05 | HOSPPROG ---
Hospitalist Progress Note Assessment/Plan: DIAGNOSES: -ACUTE CORONARY SYNDROME WITH TYPICAL ANGINA SYMPTOMS AND ELEVATED TROPONIN AND CK MB -RCA STENOSIS SUBTOTAL NOW S/P STENTING -CHRONIC CHF WITH PERIPHERAL EDEMA AT BASELINE -RATE CONTROLLED ATRIAL FIBRILLATION Regarding her heart failure she does not recall being told about low-salt diet. She does have side effects from Lasix. She only takes that intermittently based on her weight. I instructed her and her daughter on low-salt diet will use compression stockings as well. 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, my review: Exam: alert oriented skin warm dry color ok resps not labored lungs clear BSs heart regular abd soft nondistended nontender, bowel sounds present limbs warm, 1 to 2+ pitting edema both legs up to mid calf iv site ok Objective: Vital Signs Temp Pulse Resp BP Pulse Ox 36.3 C 76 12 155/75 H 93 10/20/16 11:24 10/20/16 20:48 10/20/16 11:24 10/20/16 20:48 10/20/16 11:24 Laboratory Results 10/20/16 03:32 10/20/16 03:32 10/19/16 10/20/16 10/21/16 06:59 06:59 06:59 Intake Total 730 Output Total 1550 250 Balance -820 -250 PT 14.9 SEC (12.0-15.0) 10/20/16 03:32 INR 1.17 (0.83-1.16) H 10/20/16 03:32 ICD10 Worksheet Patient Problems: Problems Problem Status Onset Atrial fibrillation Acute Chest pain Acute Congestive heart failure Acute Peripheral edema Acute Rapid atrial fibrillation Acute
[2016-10-20] MEDS: hydrALAZINE 20 MG/ML VIAL IVP PRN (21:18)
[2016-10-20] MEDS: ASPIRIN 325 MG TAB PO SCH (22:08)
[2016-10-20] MEDS: FUROSEMIDE 40 MG/4 ML VIAL IVP SCH (22:09)
[2016-10-20] MEDS: DILTIAZEM CD 120 MG CAP PO SCH (23:53)
[2016-10-20] MEDS: DOXYCYCLINE HYCLATE 100 MG CAP/TAB PO SCH (23:54)
[2016-10-21] MEDS: GABAPENTIN 400 MG CAP PO SCH ×3 (00:48→12:00)
[2016-10-21 05:37] LABS: % IMMATURE GRANULYOCYTES 0.3 % (0.0-1.1); ABSOLUTE IMMATURE GRANULOCYTES 0.04 10^3/uL (0.00-0.10); ADD DIFF? NO; ADD MORPH? NO; ADD SCAN? NO; ATYPICAL LYMPHOCYTE FLAG 10 (0-99); FRAGMENT RBC FLAG 0 (0-99); HEMATOCRIT 43.7 % (38.0-47.0); HEMOGLOBIN 14.4 g/dL (12.6-16.3); LEFT SHIFT FLG 0 (0-99); LIPEMIA HEMOLYSIS FLAG 80 (0-99); MEAN CELL HEMOGLOBIN 27.9 pg (27.9-34.1); MEAN CELL VOLUME 84.7 fL (81.5-99.8); MEAN PLATELET VOLUME 11.2 fL (8.7-11.7); PLATELET CLUMPS FLAG 0 (0-99); PLATELET COUNT 195 10^3/uL (150-400); RED BLOOD CELL COUNT 5.16 10^6/uL (4.18-5.33); RED CELL DISTRIBUTION WIDTH 15.5 % (11.5-15.2)
[2016-10-21 05:49] LABS: ALBUMIN 3.3 g/dL (3.5-5.0); ANION GAP 8 mEq/L (8-16); ASPARTATE AMINOTRANSFERASE 35 IU/L (14-46); BILIRUBIN,TOTAL 1.4 mg/dL (0.1-1.4); CALCIUM 8.4 mg/dL (8.5-10.4); CARBON DIOXIDE 26 mEq/l (22-31); CHLORIDE 102 mEq/L (97-110); CREATININE 0.7 mg/dL (0.6-1.0); GLOMERULAR FILTRATION RATE > 60; GLUCOSE 201 mg/dL (70-100); LACTATE DEHYDROGENASE 474 IU/L (313-618); MAGNESIUM 1.9 mg/dL (1.6-2.3); POTASSIUM 4.2 mEq/L (3.5-5.2); SODIUM 136 mEq/L (134-144)
[2016-10-21] MEDS: LEVOTHYROXINE 50 MCG TAB PO SCH (06:52)
[2016-10-21 08:03] VITALS: TEMP 98.4
--- NOTE | 2016-10-21 08:42 | CPEKG ---
Heart Rate: 96 RR Interval: 625 QRSD Interval: 72 QT Interval: 376 QTC Interval: 476 QRS [place]: -3 T Wave [place]: 67 EKG Severity - ABNORMAL ECG - EKG Impression: ATRIAL FIBRILLATION, V-RATE 79-128 EKG Impression: POOR R WAVE PROGRESSION PRECORDIAL LEADS EKG Impression: Low voltage throughout EKG Impression: [place] change and low voltage since October 20, 2016 Electronically Signed By: Ryan Toussaint 21-Oct-2016 08:49:57
[2016-10-21] MEDS ORDERED: CLOPIDOGREL BISULFATE 75 MG TAB PO SCH (09:00)
[2016-10-21] MEDS ORDERED: ASPIRIN EC 325 MG TAB PO SCH (09:00)
[2016-10-21] MEDS: CHOLECALCIFEROL VIT D3 1,000 UNITS TAB PO SCH (09:13)
[2016-10-21] MEDS: CYANO/VITAMIN B12 1000 MCG TAB PO SCH (09:13)
[2016-10-21] MEDS: MULTIVITAMINS 1 EACH TAB PO SCH (09:13)
[2016-10-21] MEDS: INSULIN LISPRO 100 UNIT/ML SC SCH ×2 (09:14→12:00)
[2016-10-21] MEDS: FUROSEMIDE 40 MG/4 ML VIAL IVP SCH ×2 (09:14→09:19)
[2016-10-21] MEDS: LISINOPRIL 40 MG TAB PO SCH (09:14)
[2016-10-21 10:23] VITALS: PULSE 96
--- NOTE | 2016-10-21 12:54 | SOAPPROG ---
JEFFERY Progress Note Assessment/Plan: Assessment: Status post PCI stenting of the dominant right coronary artery. Impression: Patient has done well post intervention. She has had no further angina. Her atrial fibrillation is relatively well rate controlled. Continue dual antiplatelet therapy. Follow with Dr. Kim as previously outlined with Holter monitor for rate control and follow up with Dr. Kim. Hold metformin for 3 days post dye. 10/21/16 12:51 10/21/16 12:53 Subjective: Uneventful overnight. No further angina. She is sitting in a chair without limitations. She denies PND orthopnea. She has had no syncope or near syncope. Objective: Medications Generic Name Dose Route Start Last Admin Trade Name Freq PRN Reason Stop Dose Admin Diltiazem HCl 120 mg 10/19/16 18:00 10/20/16 23:53 Cardizem Er Q24hr PO 04/17/17 17:59 Not Given DAILY@1800 [facility] Levothyroxine Sodium 50 mcg 10/20/16 06:00 10/21/16 06:52 Synthroid PO 04/18/17 05:59 [facility] Lisinopril 40 mg 10/19/16 11:00 10/21/16 09:14 Zestril PO 04/17/17 10:59 40 mg DAILY [facility] Atorvastatin Calcium 10 mg 10/19/16 21:00 10/20/16 20:48 Lipitor PO 04/17/17 20:59 10 mg HS [facility] Clopidogrel Bisulfate 75 mg 10/21/16 09:00 10/21/16 09:13 Plavix PO 04/19/17 08:59 75 mg DAILY [facility] Metformin HCl 1,000 mg 10/19/16 18:00 10/19/16 18:30 Glucophage PO 04/17/17 17:59 1,000 mg BIDMEAL [facility] Metformin HCl 500 mg 10/20/16 12:00 Glucophage PO 04/18/17 11:59 DAILY@1200 [facility] Vital Signs Temp Pulse Resp BP Pulse Ox 36.9 C 96 18 115/85 H 93 10/21/16 08:00 10/21/16 10:00 10/21/16 10:00 10/21/16 10:00 10/21/16 10:00 Laboratory Results 10/21/16 05:20 10/21/16 05:20 10/20/16 10/21/1617 05:59 05:59 05:59 Intake Total 730 1000 Output Total 1550 250 Balance -820 750 PT 14.9 SEC (12.0-15.0) 10/20/16 03:32 INR 1.17 (0.83-1.16) H 10/20/16 03:32 Physical Exam - Physical Exam General Appearance: alert, no apparent distress EENT: PERRL/EOMI Neck: non-tender, full range of motion Respiratory: chest non-tender, lungs clear Cardiac/Chest: regular rate, rhythm, No edema, No gallop, No JVD Abdomen: normal bowel sounds, non-tender, soft ICD10 Worksheet Patient Problems: Problems Problem Status Onset Congestive heart failure Acute Peripheral edema Acute Rapid atrial fibrillation Acute Chest pain Acute Atrial fibrillation Acute Review of Systems - Review of Systems Constitutional: denies: chills, fever EENTM: no symptoms reported Respiratory: no symptoms reported Cardiac: no symptoms reported Gastrointestinal/Abdominal: no symptoms reported Genitourinary: no symptoms Musculoskelatal: no symptoms
[2016-10-21 15:05] VITALS: BP 123/51; RESP 20; O2SAT 94
== END 2016-10-21 13:57 | disposition home or self-care (01) | DRG 247 ==
LOC: F2W 10-19 00:49 → OBSVTOIN 10-19 17:35 → F2N 10-20 20:24
PROVIDERS: ADMIT Internal Medicine; ATTEND Internal Medicine
DX: I24.9 Acute ischemic heart disease, unspecified (principal); I25.119 Atherosclerotic heart disease of native coronary artery with unspecified angina pectoris; I48.0 Paroxysmal atrial fibrillation; I50.32 Chronic diastolic (congestive) heart failure; Z95.5 Presence of coronary angioplasty implant and graft; E11.9 Type 2 diabetes mellitus without complications; I10 Essential (primary) hypertension; E03.9 Hypothyroidism, unspecified; Z86.73 Personal history of transient ischemic attack (TIA), and cerebral infarction without residual deficits; Z79.01 Long term (current) use of anticoagulants; Z85.6 Personal history of leukemia
CPT/HCPCS: 85520-90; 96374; C1769; C1874; C1887; C9600; J0360; J0461; J1644; J1815; J2250; J2405; J3010; J3475; Q9967

== ENCOUNTER → 2016-10-31 | Outpatient (CLI) | payer OTHER | LOC: BHFA 10:30 | PROVIDERS: ATTEND Internal Medicine Cardiovascular Disease | DX: I48.91 Unspecified atrial fibrillation (principal) ==

== ENCOUNTER 2016-11-03 12:31 | Emergency (ER) | payer OTHER ==
[2016-11-03 12:47] VITALS: O2SAT 96
--- NOTE | 2016-11-03 13:46 | EDPHY ---
H & P Stated Complaint: R nare nosebleed x 2 hours, recently started on plavix and eliquis Time Seen by Provider: 11/03/16 13:29 HPI/ROS: CHIEF COMPLAINT: Epistaxis HISTORY OF PRESENT ILLNESS: 81-year-old female presents emergency department with a nosebleed x2 hours. The patient was bending over time her shoe today when it began. Patient reports frequent nosebleeds over the last week, she was started on Plavix 1 week ago after she had 2 coronary artery stents placed. She takes Eliquis for her atrial fibrillation. Patient denies chest pain or shortness of breath. No lightheadedness, dizziness or blurred vision. No headache. Patient has an elevated blood pressure today her daughter reports and the patient reports that this is white coat syndrome. REVIEW OF SYSTEMS: A comprehensive 10 point review of systems is otherwise negative aside from elements mentioned in the history of present illness. Source: Patient, Family Exam Limitations: No limitations - Personal History Current Tetanus/Diphtheria Vaccine: Yes Current Tetanus Diphtheria and Acellular Pertussis (TDAP): Yes Tetanus Vaccine Date: unsure - Medical/Surgical History Hx Asthma: No Hx Chronic Respiratory Disease: No Hx Diabetes: Yes Hx Cardiac Disease: Yes Hx Renal Disease: No Hx Cirrhosis: No Hx Alcoholism: No Hx HIV/AIDS: No Hx Splenectomy or Spleen Trauma: No Other PMH: dm ON METFORMIN, HTN, hyperlipidemia, peripheral neuropathy, hypothyroid, CVA/TIA, stent, left thumb surg x3, tonsillectomy, hysterectomy, chronic lymphatic leukemia - Social History Smoking Status: Never smoked - Physical Exam Exam: Physical Exam Gen: Alert and Oriented, NAD HEENT: Right nare with small area of irritation and erythema to anterior septum just 1cm in from nare entrance. PERRL, moist mucous membranes NECK: no meningismus CV: regular rate and irregular rhythm PULM: CTAB, no wheezes NEURO: Neurologically grossly intact EXTREMITIES: normal appearing SKIN: no rash or break in skin on exposed skin PSYCH: answers questions appropriately. Constitutional: Initial Vital Signs Temperature (C) 36.3 C 11/03/16 12:44 Heart Rate 62 11/03/16 12:44 Respiratory Rate 17 11/03/16 12:44 Blood Pressure 192/118 H 11/03/16 12:44 O2 Sat (%) 96 11/03/16 12:44 O2 Delivery Mode Room Air Allergies/Adverse Reactions: Alpha-Linoleic Acid [From [place] 3-6-9] Allergy (Mild, Verified 08/25/16 15:56) Other-Enter Comments Fatty Acid Combination No.8 [From [place] 3-6-9] Allergy (Mild, Verified 10/18/16 22:56) Other-Enter Comments fish oil [From [place] 3-6-9] Allergy (Mild, Verified 10/18/16 22:56) Other-Enter Comments Gamma Linoleic Acid [From [place] 3-6-9] Allergy (Mild, Verified 10/18/16 22:56) Other-Enter Comments Herbal Complex No. 137 [From [place] 3-6-9] Allergy (Mild, Verified 10/18/16 22:56 ) Other-Enter Comments linoleic acid [From [place] 3-6-9] Allergy (Mild, Verified 10/18/16 22:56) Other-Enter Comments lipase [From [place] 3-6-9] Allergy (Mild, Verified 10/18/16 22:56) Other-Enter Comments oleic acid [From [place] 3-6-9] Allergy (Mild, Verified 10/18/16 22:56) Other-Enter Comments omega-3 fatty acids [From [place] 3-6-9] Allergy (Mild, Verified 10/18/16 22:56) Other-Enter Comments paroxetine HCl [From Paxil] Allergy (Mild, Verified 10/18/16 22:56) vitamin E [From [place] 3-6-9] Allergy (Mild, Verified 10/18/16 22:56) Other-Enter Comments nadolol [From Corgard] Allergy (Unknown, Verified 08/25/16 15:56) spironolactone [From Aldactone] Allergy (Unknown, Verified 08/25/16 15:56) labetalol [Labetalol] Allergy (Verified 08/25/16 15:56) Other-Enter Comments Sulfa (Sulfonamide Antibiotics) Allergy (Verified 08/25/16 15:56) Rash Home Medications: Medication Instructions Recorded Multivitamins [Multivitamin (*)] 1 each PO DAILY 02/23/11 Atorvastatin Calcium [Lipitor 10 10 mg PO DAILY 08/25/16 mg (*)] Cholecalciferol Vit D3 [Vitamin D3 1,000 units PO DAILY 08/25/16 (*)] Cyanocobalamin [Vitamin B12 (*)] 500 mcg PO DAILY 08/25/16 Doxycycline Hyclate [Vibramycin 100 mg PO DAILY@18 08/25/16 100 MG (*)] Gabapentin [Neurontin 400 MG (*)] 400 mg PO QID@08,12,18,21 08/25/16 Herbals/Supplements -Info Only 1 ea PO DAILY 08/25/16 Levothyroxine [Synthroid 50 mcg 50 mcg PO DAILY06 08/25/16 (*)] Lisinopril [Zestril 40 mg (*)] 40 mg PO DAILY 08/25/16 Nebivolol HCl [Bystolic] 10 mg PO HS 08/25/16 metFORMIN HCL [Glucophage 1000 mg] 1,000 mg PO BIDMEAL 08/25/16 metFORMIN HCL [Glucophage 1000 mg] 500 mg PO DAILY@12 08/25/16 Apixaban [Eliquis] 2.5 mg PO BID #60 tab 08/27/16 Aspirin EC [Aspirin EC 81 mg (*)] 81 mg PO BID 10/19/16 Diltiazem Cd [Cardizem ER 120 MG 120 mg PO DAILY@1800 10/19/16 (*)] Furosemide [Lasix 20 MG (*)] 20 mg PO DAILY PRN 10/19/16 Potassium Chloride 10 meq PO DAILY PRN 10/19/16 Clopidogrel Bisulfate [Plavix (*)] 75 mg PO DAILY #60 tab 10/21/16 Medical Decision Making Procedures: Procedure: Epistaxis control. Indication: Nosebleed not controlled by direct pressure. Risks, benefits, alternatives discussed with patient. Consent was obtained. The right nares was cleared with blowing nose. Several clots were removed. The right nares was sprayed with Afrin. Anterior Rhinoscopy was performed with fiber optic headlamp and nasal speculum. The anterior epistaxis was identified. The patient was treated with cautery with silver nitrate stick. Excellent hemostasis was obtained. Following the procedure, the patient was re-examined every 15 to 30 minutes until the patient was free from epistaxis for 1-hour post procedure. The patient tolerated the procedure well. The procedure was performed by myself. ED Course/Re-evaluation: The patient has an elevated blood pressure today. She and her daughters reports this is white coat syndrome. Patient denies chest pain, shortness of breath, headache, lightheadedness or blurred vision. Blood pressure upon discharge was 188/90. She will recheck her blood pressure tonight and if it is elevated she will see her business control specialist tomorrow. Patient is given strict return precautions for any chest pain, shortness of breath, lightheadedness, headache, return of epistaxis. Differential Diagnosis: Diagnosis considered but not limited to anterior epistaxis, posterior epistaxis , abrasion, hypertension, - Data Points Medications Given: Discontinued Medications Oxymetazoline HCl (Afrin Nasal [place]) 2 sprays EACHNARE EDNOW ONE Stop: 11/03/16 14:03 Last Admin: 11/03/16 14:04 Dose: 2 sprays Silver Nitrate/Potassium Nitrate (Silver Nitrate Applicator) 2 each TP EDNOW ONE Stop: 11/03/16 14:54 Last Admin: 11/03/16 14:58 Dose: 2 each Departure - Departure Disposition: Home, Routine, Self-Care Clinical Impression: Acute anterior epistaxis Condition: Good Instructions: Nosebleed (ED) Additional Instructions: Use Afrin spray 2 sprays in each nostril twice daily for 3 days. Use [place] saline spray 3 times a day, sleep with a humidifier at bedside. Do not blow your nose or rub your nose, gently smear Vaseline on the inside of your nostrils daily. If you're no starts to bleed again place the nasal clamp for 20 minutes, removed and spray Afrin, if it continues to bleed place the nasal clamp again for 20 minutes, then remove. If it continues to bleed come to the emergency department. Follow up with the Ear Nose and Throat doctor for continued nose bleeds. Take your blood pressure this evening, if it continues elevated follow up with your business control specialist tomorrow. Return to the emergency department for any chest pain, shortness of breath, headaches, lightheadedness or dizziness. Referrals: Ramsey Pagan MD [Medical Doctor] - As per Instructions (Ear Nose and Throat doctor on-call)
[2016-11-03] MEDS ORDERED: OXYMETAZOLINE 30 ML NASAL SPRAY ONE (14:00)
[2016-11-03] MEDS ORDERED: OXYMETAZOLINE 30 ML NASAL SPRAY EACHNARE ONE (14:02)
[2016-11-03] MEDS ORDERED: SILVER NITRATE APPLICATOR 1 APPL TP ONE ×2 (14:51→14:53)
[2016-11-03 14:58] VITALS: BP 191/104; PULSE 64; RESP 16; TEMP 97.7
== END 2016-11-03 15:43 | disposition home or self-care (01) ==
PROC: 2Y41X5Z Packing of Nasal Region using Packing Material (ICD-10-PCS; principal; 2016-11-03)
DX: R04.0 Epistaxis (principal); I10 Essential (primary) hypertension; E11.9 Type 2 diabetes mellitus without complications; Z79.84 Long term (current) use of oral hypoglycemic drugs; Z79.82 Long term (current) use of aspirin; Z79.01 Long term (current) use of anticoagulants; Z86.73 Personal history of transient ischemic attack (TIA), and cerebral infarction without residual deficits

== ENCOUNTER 2016-11-06 12:46 | Emergency (ER) | payer OTHER ==
--- NOTE | 2016-11-06 13:16 | EDPHY ---
HPI/HX/ROS/PE/MDM Narrative: CHIEF COMPLAINT: Recurrent epistaxis HPI: The patient is an anticoagulated 81 y/o female arriving with her daughter complaining of intermittent epistaxis for the last 3 days. She is on Eliquis for her atrial fibrillation and had 2 cardiac stents 2 weeks ago for which she is currently on Plavix and aspirin. Her nosebleed first appeared on and required an ED visit. During that visit they cauterized the bleed successfully and she was discharged home. She had some mild break through bleeding for the first two days that were controlled with pressure and a tampon. This morning the bleeding became heavy again and not controllable by direct pressure. Her daughter believes the bleeding is primarily from the patient's right nostril, but it is now coming through her eye and left nostril as well. She denies headache, dizziness, syncope, or other symptoms. REVIEW OF SYSTEMS: Aside from elements discussed in the HPI, a comprehensive 10-point review of systems was reviewed and is negative. PMH: Atrial fibrillation - Eliquis; 2 cardiac stents 2 weeks ago - Plavix and aspirin SOCIAL HISTORY: Daughter at bedside. PHYSICAL EXAM: General:Patient is alert, in no acute distress. ENT:Eyes are normal to inspection. Mild non-pulsatile bleeding from the right anterior nares. Neck: Normal inspection. Full range of motion. Respiratory:No respiratory distress. Cardiovascular: Normal cap refill. Skin: Normal color. No rash. Warm and dry. Extremities: Normal appearance. Neuro: Oriented x3. Moving all 4 extremities normally. ED Course: Procedure: Epistaxis control. Indication: nosebleed not controlled by direct pressure. Risks, benefits, alternatives discussed with patient and consent obtained. The anterior epistaxis from the right nares was identified. The patient was treated with Merocel packing. Following the procedure the patient was re-examined and the bleeding was well controlled. The patient tolerated the procedure well. The procedure was performed by myself, Dr. Shell. MDM: This patient presents with recurrent epistaxis. Given her hypertension and multiple anticoagulants, I think nasal packing is definitely indicated. I was able to achieve hemostasis with a small Merocel packing, so in the interest of comfort, we will try to discharge the patient with this in place only. She understands that she may need to return to the ED tonight for a Rhino Rocket should symptoms recur. General Time Seen by Provider: 11/06/16 13:07 Initial Vital Signs: Initial Vital Signs Temperature (C) 36.5 C 11/06/16 12:49 Heart Rate 80 11/06/16 12:49 Respiratory Rate 18 11/06/16 12:49 Blood Pressure 182/94 H 11/06/16 12:49 O2 Sat (%) 98 11/06/16 12:49 O2 Delivery Mode Room Air Allergies/Adverse Reactions: Alpha-Linoleic Acid [From [place] 3-6-9] Allergy (Mild, Verified 11/06/16 17:19) Other-Enter Comments Fatty Acid Combination No.8 [From [place] 3-6-9] Allergy (Mild, Verified 11/06/16 17:19) Other-Enter Comments fish oil [From [place] 3-6-9] Allergy (Mild, Verified 11/06/16 17:19) Other-Enter Comments Gamma Linoleic Acid [From [place] 3-6-9] Allergy (Mild, Verified 11/06/16 17:19) Other-Enter Comments Herbal Complex No. 137 [From [place] 3-6-9] Allergy (Mild, Verified 11/06/16 17:19 ) Other-Enter Comments linoleic acid [From [place] 3-6-9] Allergy (Mild, Verified 11/06/16 17:19) Other-Enter Comments lipase [From [place] 3-6-9] Allergy (Mild, Verified 11/06/16 17:19) Other-Enter Comments oleic acid [From [place] 3-6-9] Allergy (Mild, Verified 11/06/16 17:19) Other-Enter Comments omega-3 fatty acids [From [place] 3-6-9] Allergy (Mild, Verified 11/06/16 17:19) Other-Enter Comments paroxetine HCl [From Paxil] Allergy (Mild, Verified 11/06/16 17:19) vitamin E [From [place] 3-6-9] Allergy (Mild, Verified 11/06/16 17:19) Other-Enter Comments nadolol [From Corgard] Allergy (Unknown, Verified 11/06/16 17:19) spironolactone [From Aldactone] Allergy (Unknown, Verified 11/06/16 17:19) labetalol [Labetalol] Allergy (Verified 11/06/16 17:19) Other-Enter Comments Sulfa (Sulfonamide Antibiotics) Allergy (Verified 11/06/16 17:19) Rash Home Medications: Medication Instructions Recorded Multivitamins [Multivitamin (*)] 1 each PO DAILY 02/23/11 Atorvastatin Calcium [Lipitor 10 10 mg PO DAILY 08/25/16 mg (*)] Cholecalciferol Vit D3 [Vitamin D3 1,000 units PO DAILY 08/25/16 (*)] Cyanocobalamin [Vitamin B12 (*)] 500 mcg PO DAILY 08/25/16 Doxycycline Hyclate [Vibramycin 100 mg PO DAILY@18 08/25/16 100 MG (*)] Gabapentin [Neurontin 400 MG (*)] 400 mg PO QID@08,12,18,21 08/25/16 Herbals/Supplements -Info Only 1 ea PO DAILY 08/25/16 Levothyroxine [Synthroid 50 mcg 50 mcg PO DAILY06 08/25/16 (*)] Lisinopril [Zestril 40 mg (*)] 40 mg PO DAILY 08/25/16 Nebivolol HCl [Bystolic] 10 mg PO HS 08/25/16 metFORMIN HCL [Glucophage 1000 mg] 1,000 mg PO BIDMEAL 08/25/16 metFORMIN HCL [Glucophage 1000 mg] 500 mg PO DAILY@12 08/25/16 Apixaban [Eliquis] 2.5 mg PO BID #60 tab 08/27/16 Aspirin EC [Aspirin EC 81 mg (*)] 81 mg PO BID 10/19/16 Diltiazem Cd [Cardizem ER 120 MG 120 mg PO DAILY@1800 10/19/16 (*)] Furosemide [Lasix 20 MG (*)] 20 mg PO DAILY PRN 10/19/16 Potassium Chloride 10 meq PO DAILY PRN 10/19/16 Clopidogrel Bisulfate [Plavix (*)] 75 mg PO DAILY #60 tab 10/21/16 Departure - Departure Disposition: Home, Routine, Self-Care Clinical Impression: Anterior epistaxis, right Condition: Good Instructions: Nosebleed (ED) Additional Instructions: 1. Leave packing in place until follow up appointment with ENT. 2. Call ENT tomorrow to schedule a follow up appointment for reexamination. Tell them you were seen in the ED today and this is your second ED visit for this complaint. 3. Return to the ED for severe uncontrollable bleeding, lightheadedness, fainting, or other worsening of condition. Referrals: Michelle Carr MD [Primary Care Provider] - As per Instructions Mahesh Carrera MD [Medical Doctor] - As per Instructions Report Scribed for: Ramsey Shell Report Scribed by: Sharmin Longoria Date of Report: 11/06/16 Time of Report: 13:19 Physician Review and Approval Statement: Portions of this note were transcribed by an ED scribe. I personally performed the history, physical exam, and medical decision making; and confirm the accuracy of the information in the transcribed note.
[2016-11-06] MEDS ORDERED: OXYMETAZOLINE 30 ML NASAL SPRAY ONE (13:18)
[2016-11-06 14:15] VITALS: RESP 20; O2SAT 94
[2016-11-06 14:54] VITALS: BP 178/95; PULSE 60; TEMP 98.1
== END 2016-11-06 14:54 | disposition home or self-care (01) ==
PROC: 2Y41X5Z Packing of Nasal Region using Packing Material (ICD-10-PCS; principal; 2016-11-06)
DX: R04.0 Epistaxis (principal); Z79.82 Long term (current) use of aspirin; Z95.5 Presence of coronary angioplasty implant and graft

== ENCOUNTER 2016-11-06 17:14 | Emergency (ER) | payer OTHER ==
[2016-11-06 17:21] VITALS: BP 93/72; PULSE 90; RESP 17; TEMP 97.9; O2SAT 96
[2016-11-06] MEDS ORDERED: HYDROGEN PEROXIDE 236 ML BOTTLE TP ONE (17:37)
--- NOTE | 2016-11-06 17:49 | EDPHY ---
H & P Stated Complaint: EPISTAXIS/SEEN EARLIER/NOT STOPPING Time Seen by Provider: 11/06/16 17:24 HPI/ROS: CHIEF COMPLAINT: Continued epistaxis HISTORY OF PRESENT ILLNESS: 81-year-old female history of daily Eliquis secondary to atrial fibrillation as well as Plavix and aspirin secondary to cardiac stents 2 weeks ago., seen the ER earlier today with Merocel packing placement, returns for continued bleeding. No dizziness. No chest pain. No dyspnea. No headache. No nausea or vomiting. PHYSICAL EXAM (Prior to examination, patient consented to physical exam, hands were washed and my usual and customary physical exam procedures followed) 1) GENERAL: Well-developed, well-nourished, alert and oriented. 2) HEAD: Normocephalic 3) HEENT: right sided Merocel packing in place, removed revealing active anterior epistaxis. Left side is clear - Personal History Current Tetanus/Diphtheria Vaccine: Yes Tetanus Vaccine Date: unsure - Medical/Surgical History Hx Asthma: No Hx Chronic Respiratory Disease: No Hx Diabetes: Yes Hx Cardiac Disease: Yes Hx Renal Disease: No Hx Cirrhosis: No Hx Alcoholism: No Hx HIV/AIDS: No Hx Splenectomy or Spleen Trauma: No Other PMH: dm ON METFORMIN, HTN, hyperlipidemia, peripheral neuropathy, hypothyroid, CVA/TIA, stent, left thumb surg x3, tonsillectomy, hysterectomy, chronic lymphatic leukemia - Social History Smoking Status: Never smoked Constitutional: Initial Vital Signs Temperature (C) 36.6 C 11/06/16 17:19 Heart Rate 90 11/06/16 17:19 Respiratory Rate 17 11/06/16 17:19 Blood Pressure 93/72 L 11/06/16 17:19 O2 Sat (%) 96 11/06/16 17:19 O2 Delivery Mode Room Air Allergies/Adverse Reactions: Alpha-Linoleic Acid [From [place] 3-6-9] Allergy (Mild, Verified 11/06/16 17:19) Other-Enter Comments Fatty Acid Combination No.8 [From [place] 3-6-9] Allergy (Mild, Verified 11/06/16 17:19) Other-Enter Comments fish oil [From [place] 3-6-9] Allergy (Mild, Verified 11/06/16 17:19) Other-Enter Comments Gamma Linoleic Acid [From [place] 3-6-9] Allergy (Mild, Verified 04/16/17 17:19) Other-Enter Comments Herbal Complex No. 137 [From [place] 3-6-9] Allergy (Mild, Verified 11/06/16 17:19 ) Other-Enter Comments linoleic acid [From [place] 3-6-9] Allergy (Mild, Verified 11/06/16 17:19) Other-Enter Comments lipase [From [place] 3-6-9] Allergy (Mild, Verified 11/06/16 17:19) Other-Enter Comments oleic acid [From [place] 3-6-9] Allergy (Mild, Verified 11/06/16 17:19) Other-Enter Comments omega-3 fatty acids [From [place] 3-6-9] Allergy (Mild, Verified 11/06/16 17:19) Other-Enter Comments paroxetine HCl [From Paxil] Allergy (Mild, Verified 11/06/16 17:19) vitamin E [From [place] 3-6-9] Allergy (Mild, Verified 11/06/16 17:19) Other-Enter Comments nadolol [From Corgard] Allergy (Unknown, Verified 11/06/16 17:19) spironolactone [From Aldactone] Allergy (Unknown, Verified 11/06/16 17:19) labetalol [Labetalol] Allergy (Verified 11/06/16 17:19) Other-Enter Comments Sulfa (Sulfonamide Antibiotics) Allergy (Verified 11/06/16 17:19) Rash Home Medications: Medication Instructions Recorded Multivitamins [Multivitamin (*)] 1 each PO DAILY 02/23/11 Atorvastatin Calcium [Lipitor 10 10 mg PO DAILY 08/25/16 mg (*)] Cholecalciferol Vit D3 [Vitamin D3 1,000 units PO DAILY 08/25/16 (*)] Cyanocobalamin [Vitamin B12 (*)] 500 mcg PO DAILY 08/25/16 Doxycycline Hyclate [Vibramycin 100 mg PO DAILY@18 08/25/16 100 MG (*)] Gabapentin [Neurontin 400 MG (*)] 400 mg PO QID@08,12,18,21 08/25/16 Herbals/Supplements -Info Only 1 ea PO DAILY 08/25/16 Levothyroxine [Synthroid 50 mcg 50 mcg PO DAILY06 08/25/16 (*)] Lisinopril [Zestril 40 mg (*)] 40 mg PO DAILY 08/25/16 Nebivolol HCl [Bystolic] 10 mg PO HS 08/25/16 metFORMIN HCL [Glucophage 1000 mg] 1,000 mg PO BIDMEAL 08/25/16 metFORMIN HCL [Glucophage 1000 mg] 500 mg PO DAILY@12 08/25/16 Apixaban [Eliquis] 2.5 mg PO BID #60 tab 08/27/16 Aspirin EC [Aspirin EC 81 mg (*)] 81 mg PO BID 10/19/16 Diltiazem Cd [Cardizem ER 120 MG 120 mg PO DAILY@1800 10/19/16 (*)] Furosemide [Lasix 20 MG (*)] 20 mg PO DAILY PRN 10/19/16 Potassium Chloride 10 meq PO DAILY PRN 10/19/16 Clopidogrel Bisulfate [Plavix (*)] 75 mg PO DAILY #60 tab 10/21/16 Medical Decision Making Procedures: Procedure: Epistaxis control. Indication: Recurrent nosebleed not controlled by direct pressure. Risks, benefits, alternatives discussed with patient and consent obtained. The right was packed with rapid rhino packing. Following the procedure the patient was re-examined and the bleeding was well controlled. The procedure was performed by myself. At discharge the patient's nose is hemostatic. Departure - Departure Disposition: Home, Routine, Self-Care Clinical Impression: Epistaxis, recurrent Condition: Good Instructions: Nosebleed (ED) Referrals: Mahesh Carrera MD [Medical Doctor] - 1 day without fail (Leave the packing in place into a seen by the ear nose and throat doctor.)
== END 2016-11-06 18:17 | disposition home or self-care (01) ==
PROC: 2Y41X5Z Packing of Nasal Region using Packing Material (ICD-10-PCS; principal; 2016-11-06)
DX: R04.0 Epistaxis (principal); I10 Essential (primary) hypertension; E11.9 Type 2 diabetes mellitus without complications; Z79.84 Long term (current) use of oral hypoglycemic drugs; Z79.82 Long term (current) use of aspirin; Z79.01 Long term (current) use of anticoagulants; Z86.73 Personal history of transient ischemic attack (TIA), and cerebral infarction without residual deficits; Z95.5 Presence of coronary angioplasty implant and graft

== ENCOUNTER 2016-11-18 00:53 | Emergency (ER) | payer OTHER ==
[2016-11-18 00:57] VITALS: RESP 18; TEMP 97.7
[2016-11-18] MEDS ORDERED: ACETAMINOPHEN 500 MG TAB PO ONE (02:29)
[2016-11-18] MEDS ORDERED: ACETAMINOPHEN 500 MG TAB ONE (02:31)
--- NOTE | 2016-11-18 02:43 | EDPHY ---
H & P Stated Complaint: NOSE BLEED FOR PAST 3 HRS, HX OF SAME IN PAST Time Seen by Provider: 11/18/16 01:15 HPI/ROS: Chief Complaint: Epistaxis HPI: 81-year-old female presenting with epistaxis from her right nostril. Patient was recently seen and treated for the same. She had a nasal packing placed last weekend. She was seen 2 days ago by ENT and had this removed. Has had some intermittent bleeding since then but 3 hours ago started having brisk bleeding from her right nose. She has a history of recent coronary artery disease and atrial fibrillation is on Eliquis and Plavix. No lightheadedness or syncope. No chest pain shortness of breath. ROS: 10 point Review of Systems is negative except as noted in the HPI. PMH: Coronary artery disease, atrial fibrillation, epistaxis Social History: No smoking, no alcohol, no recreational drug use Family History: non-contributory Physical Exam: Gen: Awake, Alert, No Distress HEENT: Brisk bleeding from her right naris anteriorly Eyes: PERRLA, EOMI Mouth: Moist mucosa Neck: Supple, no JVD Chest: nontender, lungs clear to auscultation Heart: S1, S2 normal, no murmur Abd: Soft, non-tender, no guarding Back: no CVA tenderness, no midline tenderness Ext: no edema, non-tender Skin: no rash Neuro: CN II-XII intact, Sensation grossly intact, Strength 5/5 in bilateral upper and lower extremities - Personal History Current Tetanus/Diphtheria Vaccine: Yes Current Tetanus Diphtheria and Acellular Pertussis (TDAP): Yes Tetanus Vaccine Date: unsure - Medical/Surgical History Hx Asthma: No Hx Chronic Respiratory Disease: No Hx Diabetes: Yes Hx Cardiac Disease: Yes Hx Renal Disease: No Hx Cirrhosis: No Hx Alcoholism: No Hx HIV/AIDS: No Hx Splenectomy or Spleen Trauma: No Other PMH: dm ON METFORMIN, HTN, hyperlipidemia, peripheral neuropathy, hypothyroid, CVA/TIA, stent, left thumb surg x3, tonsillectomy, hysterectomy, chronic lymphatic leukemia, A-FIB - Social History Smoking Status: Never smoked Constitutional: Initial Vital Signs Temperature (C) 36.5 C 11/18/16 00:55 Heart Rate 117 H 11/18/16 00:55 Respiratory Rate 18 11/18/16 00:55 Blood Pressure 90/79 L 11/18/16 00:55 O2 Sat (%) 90 L 11/18/16 00:55 O2 Delivery Mode Room Air Allergies/Adverse Reactions: Alpha-Linoleic Acid [From Gardner 3-6-9] Allergy (Mild, Verified 11/18/16 00:57) Other-Enter Comments Fatty Acid Combination No.8 [From Gardner 3-6-9] Allergy (Mild, Verified 11/18/16 00:57) Other-Enter Comments fish oil [From Gardner 3-6-9] Allergy (Mild, Verified 11/18/16 00:57) Other-Enter Comments Gamma Linoleic Acid [From Gardner 3-6-9] Allergy (Mild, Verified 11/18/16 00:57) Other-Enter Comments Herbal Complex No. 137 [From Gardner 3-6-9] Allergy (Mild, Verified 11/18/16 00:57 ) Other-Enter Comments linoleic acid [From Gardner 3-6-9] Allergy (Mild, Verified 11/18/16 00:57) Other-Enter Comments lipase [From Gardner 3-6-9] Allergy (Mild, Verified 11/18/16 00:57) Other-Enter Comments oleic acid [From Gardner 3-6-9] Allergy (Mild, Verified 11/18/16 00:57) Other-Enter Comments omega-3 fatty acids [From Gardner 3-6-9] Allergy (Mild, Verified 11/18/16 00:57) Other-Enter Comments paroxetine HCl [From Paxil] Allergy (Mild, Verified 11/18/16 00:57) vitamin E [From Gardner 3-6-9] Allergy (Mild, Verified 11/18/16 00:57) Other-Enter Comments nadolol [From Corgard] Allergy (Unknown, Verified 11/18/16 00:57) spironolactone [From Aldactone] Allergy (Unknown, Verified 11/18/16 00:57) labetalol [Labetalol] Allergy (Verified 11/18/16 00:57) Other-Enter Comments Sulfa (Sulfonamide Antibiotics) Allergy (Verified 11/18/16 00:57) Rash Home Medications: Medication Instructions Recorded Multivitamins [Multivitamin (*)] 1 each PO DAILY 02/23/11 Atorvastatin Calcium [Lipitor 10 10 mg PO DAILY 08/25/16 mg (*)] Cholecalciferol Vit D3 [Vitamin D3 1,000 units PO DAILY 08/25/16 (*)] Cyanocobalamin [Vitamin B12 (*)] 500 mcg PO DAILY 08/25/16 Doxycycline Hyclate [Vibramycin 100 mg PO DAILY@18 08/25/16 100 MG (*)] Gabapentin [Neurontin 400 MG (*)] 400 mg PO QID@08,12,18,21 08/25/16 Herbals/Supplements -Info Only 1 ea PO DAILY 08/25/16 Levothyroxine [Synthroid 50 mcg 50 mcg PO DAILY06 08/25/16 (*)] Lisinopril [Zestril 40 mg (*)] 40 mg PO DAILY 08/25/16 Nebivolol HCl [Bystolic] 10 mg PO HS 08/25/16 metFORMIN HCL [Glucophage 1000 mg] 1,000 mg PO BIDMEAL 08/25/16 metFORMIN HCL [Glucophage 1000 mg] 500 mg PO DAILY@12 08/25/16 Apixaban [Eliquis] 2.5 mg PO BID #60 tab 08/27/16 Diltiazem Cd [Cardizem ER 120 MG 120 mg PO DAILY@1800 10/19/16 (*)] Furosemide [Lasix 20 MG (*)] 20 mg PO DAILY PRN 10/19/16 Potassium Chloride 10 meq PO DAILY PRN 10/19/16 Clopidogrel Bisulfate [Plavix (*)] 75 mg PO DAILY #60 tab 10/21/16 Medical Decision Making Procedures: Procedure: Epistaxis control. After verbal consent was obtained. The anterior epistaxis was identified. The patient was treated with 7.5 cm rhino rocket. Following the procedure the patient was re-examined and the bleeding was well controlled. The patient tolerated the procedure well. The procedure was performed by myself. - Data Points Medications Given: Discontinued Medications Acetaminophen (Tylenol) 1,000 mg PO EDNOW ONE Stop: 11/18/16 02:30 Last Admin: 11/18/16 02:34 Dose: 1,000 mg Departure - Departure Disposition: Home, Routine, Self-Care Clinical Impression: Acute anterior epistaxis Condition: Good Instructions: Nosebleed (ED) Additional Instructions: Follow up with Ear Nose and Throat doctor in 2-3 days for re-evaluation. Return to the ER for increasing bleeding, pain, fevers, chills, nausea, vomiting , headache, or any other concerns. Referrals: Michelle Carr MD [Primary Care Provider] - As per Instructions Mahesh Carrera MD [Medical Doctor] - As per Instructions
[2016-11-18 02:55] VITALS: BP 160/108; PULSE 101; O2SAT 96
== END 2016-11-18 02:55 | disposition home or self-care (01) ==
PROC: 2Y41X5Z Packing of Nasal Region using Packing Material (ICD-10-PCS; principal; 2016-11-18)
DX: R04.0 Epistaxis (principal); I25.10 Atherosclerotic heart disease of native coronary artery without angina pectoris; I10 Essential (primary) hypertension; E11.9 Type 2 diabetes mellitus without complications; Z79.01 Long term (current) use of anticoagulants; Z79.84 Long term (current) use of oral hypoglycemic drugs; Z86.73 Personal history of transient ischemic attack (TIA), and cerebral infarction without residual deficits

== ENCOUNTER → 2018-07-02 | Outpatient (CLI) | payer OTHER | LOC: BHCLAF 14:00 | PROVIDERS: ATTEND Internal Medicine Cardiovascular Disease | DX: I25.10 Atherosclerotic heart disease of native coronary artery without angina pectoris (principal); I35.1 Nonrheumatic aortic (valve) insufficiency; I34.0 Nonrheumatic mitral (valve) insufficiency; I10 Essential (primary) hypertension | CPT/HCPCS: 93306-PO ==